=== PATIENT | male | born 1960 | race Two or more races ===

== ENCOUNTER 2017-04-10 10:10 | Inpatient (IN) | payer MEDICARE ==
--- NOTE | 2017-04-10 11:13 | ER Document Report ---
ED Medical Screen (RME) - General Chief Complaint: Abnormal Lab Results Stated Complaint: KIDNEY PROBLEMS Time Seen by Provider: 04/10/17 11:05 Mode of Arrival: Ambulatory Information source: Patient TRAVEL OUTSIDE OF THE [place] IN LAST 30 DAYS: No - HPI Patient complains to provider of: needs dialysis Notes: 04/10/17 11:10 Patient is a 57-year-old male with a history of end-stage renal disease, who presents to the emergency room requesting assistance with dialysis, states that he recently moved here from [place], thought he had outpatient dialysis arranged by the alf he was previously residing in, however Juanita told him he needed to see a digital computer systems analyst prior to being scheduled for dialysis here, his last treatment was 4 days ago he denies any symptoms at present time, he moved to the [place] area to live with his daughter 04/10/17 11:[address] Pérez, nephrology who requested patient be an observation admission to the hospitalist service, he will arrange for the dialysis nurse to perform dialysis at some point in time today, and then patient will be arranged to have outpatient dialysis in the next few days at [facility] - Related Data Allergies/Adverse Reactions: cyclosporine Allergy (Verified 04/10/17 10:13) Penicillins Allergy (Verified 04/10/17 10:13) Past Medical History Renal/ Medical History: Denies: Hx Peritoneal Dialysis - DIALYSIS Physical Exam - Vital signs Vitals: Temp Pulse Resp BP Pulse Ox 97.7 F 73 18 130/78 H 100 04/10/17 10:13 04/10/17 10:13 04/10/17 10:13 04/10/17 10:13 04/10/17 10:13 Course - Vital Signs Vital signs: Temp Pulse Resp BP Pulse Ox 97.7 F 73 18 130/78 H 100 04/10/17 10:13 04/10/17 10:13 04/10/17 10:13 04/10/17 10:13 04/10/17 10:13
[2017-04-10 11:25] LABS: ABSOLUTE EOSINOPHILS # (AUTO) 0.2 10^3/uL (0.0-0.6); ABSOLUTE LYMPHOCYTES (AUTO) 1.2 10^3/uL (0.5-4.7); ABSOLUTE MONOCYTES (AUTO) 0.6 10^3/uL (0.1-1.4); ABSOLUTE NEUT (AUTO) 2.7 10^3/uL (1.7-8.2); BASOPHILS % (AUTO) 0.9 % (0-2); EOSINOPHILS % (AUTO) 4.2 % (0-6); HEMOGLOBIN 12.9 g/dL (13.5-17.0); HGB HCT DIFFERENCE -0.3; LYMPHOCYTES % (AUTO) 24.7 % (13-45); MEAN CORPUSCULAR HEMOGLOBIN 34.5 pg (27.0-33.4); MEAN CORPUSCULAR HGB CONC 33.2 g/dL (32.0-36.0); MEAN CORPUSCULAR VOLUME 104 fl (80-97); MONOCYTES % (AUTO) 12.1 % (3-13); RED BLOOD COUNT 3.75 10^6/uL (4.35-5.55); RED CELL DISTRIBUTION WIDTH 15.4 % (11.5-14.0); SEGMENTED NEUTROPHILS % (AUTO) 58.1 % (42-78); WHITE BLOOD COUNT 4.7 10^3/uL (4.0-10.5)
[2017-04-10 11:40] LABS: ALANINE AMINOTRANSFERASE 26 U/L (21-72); ALKALINE PHOSPHATASE 45 U/L (38-126); ASPARTATE AMINO TRANSFERASE 13 U/L (17-59); BILIRUBIN,DIRECT 0.7 mg/dL (0.0-0.4); BILIRUBIN,TOTAL 0.7 mg/dL (0.2-1.3); BLOOD UREA NITROGEN 84 mg/dL (7-20); CALCIUM 7.5 mg/dL (8.4-10.2); CARBON DIOXIDE 17 mmol/L (22-30); GLUCOSE 100 mg/dL (75-110); TOTAL PROTEIN 6.7 g/dL (6.3-8.2)
[2017-04-10 11:49] LABS: CHLORIDE 99 mmol/L (98-107); SODIUM 140.4 mmol/L (137-145)
[2017-04-10 11:51] LABS: ANION GAP 24 (5-19)
[2017-04-10 11:54] LABS: POTASSIUM 6.6 mmol/L (3.6-5.0)
[2017-04-10] MEDS ORDERED: CALCIUM GLUCONATE 1000 MG/10 ML INJ IV ONE (11:57)
[2017-04-10] MEDS ORDERED: INSULIN REG, HUMAN 100 UNIT/ML 3 ML VIAL (PYX) IV ONE (11:57)
[2017-04-10] MEDS ORDERED: DEXTROSE 50%-WATER 25 GM/50 ML DISP.SYRIN IV ONE (11:57)
[2017-04-10 12:07] LABS: CREATININE RESULT 17.96 mg/dL (0.52-1.25)
--- NOTE | 2017-04-10 12:52 | ER Document Report ---
ED General - General Chief Complaint: Abnormal Lab Results Stated Complaint: KIDNEY PROBLEMS Time Seen by Provider: 04/10/17 11:05 Mode of Arrival: Ambulatory Information source: Patient Notes: 57-year-old male history of dialysis who had dialysis on but has been noted to have elevated potassium presents with concerns for needing dialysis. Pt denies any chest pain sob. Dr Pérez requests patient admitted for obs and dialysis due ot high risk of cardiac event TRAVEL OUTSIDE OF THE [place] IN LAST 30 DAYS: No - HPI Onset: Just prior to arrival Onset/Duration: Sudden Quality of pain: No pain Severity: Moderate Pain Level: Denies Associated symptoms: Other Exacerbated by: Denies Relieved by: Denies Similar symptoms previously: Yes Recently seen / treated by doctor: Yes - Related Data Allergies/Adverse Reactions: cyclosporine Allergy (Verified 04/10/17 10:13) Penicillins Allergy (Verified 04/10/17 10:13) Past Medical History - General Information source: Patient - Social History Smoking Status: Never Smoker Cigarette use (# per day): No Chew tobacco use (# tins/day): No Smoking Education Provided: No Family History: Reviewed & Not Pertinent Patient has suicidal ideation: No Patient has homicidal ideation: No Renal/ Medical History: Denies: Hx Peritoneal Dialysis - DIALYSIS Review of Systems - Review of Systems Notes: REVIEW OF SYSTEMS: CONSTITUTIONAL : Denies fever, chills, or sweats. Denies recent illness. EENT: Denies eye, ear, throat, or mouth pain or symptoms. Denies nasal or sinus congestion or discharge. Denies throat, tongue, or mouth swelling or difficulty swallowing. CARDIOVASCULAR: Denies chest pain. Denies palpitations or racing or irregular heart beat. Denies ankle edema. RESPIRATORY: Denies cough, cold, or chest congestion. Denies shortness of breath, difficulty breathing, or wheezing. GASTROINTESTINAL: Denies abdominal pain or distention. Denies nausea, vomiting , or diarrhea. Denies blood in vomitus, stools, or per rectum. Denies black, tarry stools. Denies constipation. GENITOURINARY: Denies difficulty urinating, painful urination, burning, frequency, blood in urine, or discharge. MUSCULOSKELETAL: Denies back or neck pain or stiffness. Denies joint pain or swelling. SKIN: Denies rash, lesions or sores. HEMATOLOGIC : Denies easy bruising or bleeding. LYMPHATIC: Denies swollen, enlarged glands. NEUROLOGICAL: Denies confusion or altered mental status. Denies passing out or loss of consciousness. Denies dizziness or lightheadedness. Denies headache. Denies weakness or paralysis or loss of use of either side. Denies problems with gait or speech. Denies sensory loss, numbness, or tingling. Denies seizures. PSYCHIATRIC: Denies anxiety or stress. Denies depression, suicidal ideation, or homicidal ideation. ALL OTHER SYSTEMS REVIEWED AND NEGATIVE. Dictation was performed using [employer] voice recognition software PHYSICAL EXAMINATION: GENERAL: Well-appearing, well-nourished and in no acute distress. HEAD: Atraumatic, normocephalic. EYES: Pupils equal round and reactive to light, extraocular movements intact, sclera anicteric, conjunctiva are normal. ENT: Nares patent, oropharynx clear without exudates. Moist mucous membranes. NECK: Normal range of motion, supple without lymphadenopathy LUNGS: Breath sounds clear to auscultation bilaterally and equal. No wheezes rales or rhonchi. HEART: Regular rate and rhythm without murmurs ABDOMEN: Soft, nontender, nondistended abdomen. No guarding, no rebound. No masses appreciated. Musculoskeletal: Normal range of motion, no pitting or edema. No cyanosis. NEUROLOGICAL: Cranial nerves grossly intact. Normal speech, normal gait. Normal sensory, motor exams PSYCH: Normal mood, normal affect. SKIN: Warm, Dry, normal turgor, no rashes or lesions noted. dialysis access upper extremity Physical Exam - Vital signs Vitals: Temp Pulse Resp BP Pulse Ox 97.7 F 73 18 130/78 H 100 04/10/17 10:13 04/10/17 10:13 04/10/17 10:13 04/10/17 10:13 04/10/17 10:13 Course - Re-evaluation Re-evalutation: 04/10/17 16:28 Patient will be admitted to observation for his hyperkalemia, EKG did not note hyperacute T waves therefore I do not believe patient requires any calcium at this time. He will require dialysis, otherwise he appears to be in no distress - Vital Signs Vital signs: Temp Pulse Resp BP Pulse Ox 97.7 F 73 18 130/78 H 100 04/10/17 10:13 04/10/17 10:13 04/10/17 10:13 04/10/17 10:13 04/10/17 10:13 - Laboratory Result Diagrams: 04/10/17 11:10 04/10/17 11:10 Laboratory results interpreted by me: 04/10/17 04/10/17 11:10 11:10 RBC 3.75 L Hgb 12.9 L MCV 104 H MCH 34.5 H RDW 15.4 H Potassium 6.6 H* Carbon Dioxide 17 L Anion Gap 24 H BUN 84 H Creatinine 17.96 H Est GFR ( Amer) 3 L Est GFR (Non-Af Amer) 3 L Calcium 7.5 L Direct Bilirubin 0.7 H AST 13 L - Diagnostic Test Radiology reviewed: Image reviewed, Reports reviewed - EKG Interpretation by Me EKG shows normal: Sinus rhythm, Rinard, Intervals, QRS Complexes Critical Care Note - Critical Care Note Total time excluding time spent on procedures (mins): 31 Comments: 31 minutes of critical care time spent in direct contact evaluating and reevaluating the patient, treating symptoms, reviewing labs and studies and speaking with family and consultants excluding any procedures Discharge - Discharge Clinical Impression: Hyperkalemia, ESRD (end stage renal disease) HTN (hypertension) Qualifiers: Hypertension type: renovascular hypertension Qualified Code(s): I15.0 - Renovascular hypertension Admitting Provider: Hospitalist Unit Admitted: Telemetry
[2017-04-10] MEDS ORDERED: ONDANSETRON HCL INJ/PF 4 MG/2 ML SDV IV PRN (13:42)
[2017-04-10] MEDS ORDERED: ACETAMINOPHEN 325 MG TABLET PO PRN (13:42)
[2017-04-10] MEDS ORDERED: IPRATROPIUM/ALBUTEROL 0.5-2.5 MG/3 ML AMPUL NEB PRN (13:42)
--- NOTE | 2017-04-10 14:10 | PDOC H&P ---
History of Present Illness Admission Date/PCP: 04/10/2017 Patient complains of: I was told to come in History of Present Illness: TOLU CAMACHO is a 57 year old male presents to the ED from [facility] due to abnl labs and no outpt arrangements for dialysis. He has hypertensive induced ESRD and previously receiving HD in [place] as recently as this past but has since moved to [place] and unable to establish with local dialysis center without prior chalk cutter evaluation. He was told to present to the ED where "they would set it all up". He denies chest pain, palpitations, swelling of legs, dyspnea, VIVAS, dizziness, N/T, abdominal pain, N/V/D, rash or fatigue. He no longer makes any urine. He claims to have at least one month supply of all his BP meds and still taking them as directed. eval in ED shows mild macrocytic anemia, K 6.6, AG met acidosis and Scr 18. we were asked to admit for observation so arrangements could be made for urgent dialysis this afternoon. Past Medical History Cardiac Medical History: Reports: Hypertension, Peripheral Vascular Disease, Other - intracranial aneurysm with hemorrhage requiring drainage and surgical repair. Denies: Coronary Artery Disease Pulmonary Medical History: Reports: None Endocrine Medical History: Denies: Diabetes Mellitus Type 1 Renal/ Medical History: Reports: End Stage Renal Disease GI Medical History: Reports: None Past Surgical History Past Surgical History: Reports: Vascular Surgery - AV fistula left forearm, Other - carotid artery stents bilat Denies: Renal Transplant Social History Information Source: Patient Lives with: Family - daughter Smoking Status: Current Every Day Smoker Cigarettes Packs Per Day: 0.5 Frequency of Alcohol Use: None Hx Recreational Drug Use: No Hx Prescription Drug Abuse: No - Advance Directive Resuscitation Status: Full Code Family History Family History: Reviewed & Not Pertinent, Thyroid Disfunction, Other - CKD Parental Family History Reviewed: Yes Children Family History Reviewed: Yes Sibling(s) Family History Reviewed.: Yes Medication/Allergy Allergies/Adverse Reactions: cyclosporine Allergy (Verified 04/10/17 10:13) Penicillins Allergy (Verified 04/10/17 10:13) Review of Systems All systems: reviewed and no additional remarkable complaints except as stated - all systems reviewed, see HPI, remaining systems negative Physical Exam Vital Signs: Temp Pulse Resp BP Pulse Ox 97.7 F 73 18 130/78 H 100 04/10/17 10:13 04/10/17 10:13 04/10/17 10:13 04/10/17 10:13 04/10/17 10:13 Intake & Output 04/09/17 04/10/17 04/11/17 06:59 06:59 06:59 Weight 109 kg General appearance: PRESENT: no acute distress, obese, well-developed, well- nourished Head exam: PRESENT: atraumatic, normocephalic Eye exam: PRESENT: conjunctival injection - left eye. ABSENT: scleral icterus Mouth exam: PRESENT: moist, neck supple Teeth exam: PRESENT: poor dentation Neck exam: PRESENT: full ROM. ABSENT: JVD Respiratory exam: PRESENT: clear to auscultation gage. ABSENT: accessory muscle use Cardiovascular exam: PRESENT: RRR, other - AF fistula in left forarm with palpable thrill and audible bruit. ABSENT: systolic murmur Pulses: PRESENT: normal radial pulses, +1 pedal pulses bilateral Vascular exam: ABSENT: normal capillary refill - diminished at toes, pallor GI/Abdominal exam: PRESENT: normal bowel sounds, soft. ABSENT: tenderness Extremities exam: PRESENT: pedal edema - trace at the ankles. ABSENT: calf tenderness Musculoskeletal exam: PRESENT: ambulatory, full ROM Neurological exam: PRESENT: alert, awake, oriented to person, oriented to place , oriented to time, oriented to situation Psychiatric exam: PRESENT: appropriate affect, normal mood Skin exam: PRESENT: warm. ABSENT: rash Results Laboratory Results: 04/10/17 11:10 04/10/17 11:10 04/10/17 04/10/17 11:10 11:10 WBC 4.7 RBC 3.75 L Hgb 12.9 L Hct 39.0 MCV 104 H MCH 34.5 H MCHC 33.2 RDW 15.4 H Plt Count 164 Seg Neutrophils % 58.1 Lymphocytes % 24.7 Monocytes % 12.1 Eosinophils % 4.2 Basophils % 0.9 Absolute Neutrophils 2.7 Absolute Lymphocytes 1.2 Absolute Monocytes 0.6 Absolute Eosinophils 0.2 Absolute Basophils 0.0 Sodium 140.4 Potassium 6.6 H* Chloride 99 Carbon Dioxide 17 L Anion Gap 24 H BUN 84 H Creatinine 17.96 H Est GFR ( Amer) 3 L Est GFR (Non-Af Amer) 3 L Glucose 100 Calcium 7.5 L Total Bilirubin 0.7 AST 13 L ALT 26 Alkaline Phosphatase 45 Total Protein 6.7 Albumin 4.0 Assessment & Plan - Diagnosis (1) Hyperkalemia Is this a current diagnosis for this admission?: YesPlan: new, 2/2 ESRD in need of dialysis; already received pharmacologic treatment in ED, admit for nephrology consult and urgent dialysis this afternoon. dr ayers already aware (2) Metabolic acidosis Is this a current diagnosis for this admission?: YesPlan: new. as above (3) ESRD (end stage renal disease) Is this a current diagnosis for this admission?: YesPlan: acute on chronic; treat as above (4) HTN (hypertension) Qualifiers: Hypertension type: renovascular hypertension Qualified Code(s): I15.0 - Renovascular hypertension Is this a current diagnosis for this admission?: YesPlan: chronic; resume home regimen once confirmed (5) Macrocytic anemia Is this a current diagnosis for this admission?: YesPlan: new; ck B12 and folate levels - Time Time Spent: 50 to 70 Minutes Medications reviewed and adjusted accordingly: Yes Anticipated discharge: Home Within: within 24 hours
[2017-04-10 15:36] LABS: FOLATE 10.1 ng/mL (>2.76)
--- NOTE | 2017-04-10 17:57 | EKG REPORT ---
SEVERITY:- BORDERLINE ECG - SINUS RHYTHM BORDERLINE R WAVE PROGRESSION, ANTERIOR LEADS : Confirmed by: Kathy Mccray MD 10-Apr-2017 17:56:58
[2017-04-11 06:38] LABS: CALCIUM 7.8 mg/dL (8.4-10.2); CARBON DIOXIDE 25 mmol/L (22-30); CREATININE RESULT 11.76 mg/dL (0.52-1.25); GLUCOSE 78 mg/dL (75-110); MAGNESIUM 2.1 mg/dL (1.6-2.3); PHOSPHORUS 8.1 mg/dL (2.5-4.5)
[2017-04-11 06:46] LABS: ANION GAP 19 (5-19); CHLORIDE 98 mmol/L (98-107); SODIUM 141.6 mmol/L (137-145)
[2017-04-11 06:47] LABS: BLOOD UREA NITROGEN 53 mg/dL (7-20)
[2017-04-11 07:02] LABS: HEMATOCRIT 38.8 % (37.9-51.0); HEMOGLOBIN 12.8 g/dL (13.5-17.0); HGB HCT DIFFERENCE -0.4; MEAN CORPUSCULAR HEMOGLOBIN 34.1 pg (27.0-33.4); MEAN CORPUSCULAR VOLUME 103 fl (80-97); RED BLOOD COUNT 3.76 10^6/uL (4.35-5.55); RED CELL DISTRIBUTION WIDTH 15.1 % (11.5-14.0); WHITE BLOOD COUNT 4.6 10^3/uL (4.0-10.5)
--- NOTE | 2017-04-11 09:17 | PDOC CONSULTATION ---
Consultation Consult Date: 04/10/17 Consult reason:: hyperkalemia in ESRD for acute dialysis History of Present Illness Admission Date/PCP: 04/10/17 13:42 History of Present Illness: TOLU CAMACHO is a 57 year old male is coming from [place] presents to the ED from [facility] due to abnormal labs and no outpt arrangements for dialysis. He has hypertensive induced ESRD and previously receiving HD in [place] as recently as this past but has since moved to [place] and unable to establish with local dialysis center without prior chef teacher evaluation. He was told to present to the ED where "they would set it all up". He denies chest pain, palpitations, swelling of legs, dyspnea, VIVAS, dizziness, N/T, abdominal pain. Is feeling weak and has been losing appetite. He no longer makes any urine. He claims to have at least one month supply of all his BP meds and still taking them as directed. Eval in ED shows mild macrocytic anemia, K 6.6, AG met acidosis and Scr 18. Patient is developing early uremia with and has a potassium of 6.6 indicating emergent dialysis.Patient was seen on dialysis and is undergoing dialysis without any issues. Is being supervised to ensure a safe and smooth procedure. Vital signs are stable. Orders were discussed with the treating nurse. Past Medical History Cardiac Medical History: Reports: Hypertension-primary, Peripheral Vascular Disease, Other - intracranial aneurysm with hemorrhage requiring drainage and surgical repair. Denies: Coronary Artery Disease Pulmonary Medical History: Reports: None Neurological History Note: History of ruptured aneurysm and CVA Endocrine Medical History: Denies: Diabetes Mellitus Type 1 Renal/ Medical History: Reports: End Stage Renal Disease Denies: Renal Transplant GI Medical History: Reports: None Psychiatric Medical History: Reports: Tobacco Dependency Hematology Medical History: Reports Anemia of Chronic Kidney Disease Past Surgical History Past Surgical History: Reports: Vascular Surgery - AV fistula left forearm, Other - carotid artery stents bilat Denies: Renal Transplant Social History Lives with: Family - daughter Smoking Status: Current Every Day Smoker Cigarettes Packs Per Day: 0.5 Frequency of Alcohol Use: None Hx Recreational Drug Use: No Hx Prescription Drug Abuse: No - Advance Directive Resuscitation Status: Full Code Family History Parental Family History Reviewed: Yes - father with hypertension and ESRD but refused to go on HD Children Family History Reviewed: Yes - negative for CKD Sibling(s) Family History Reviewed.: Yes - negative for CKD Medication/Allergy Home Medications: Acetaminophen [Tylenol 325 mg Tablet] 650 mg PO Q6HP PRN 04/10/17 Aspirin [Aspirin 81 mg Chewable Tablet] 81 mg PO DAILY 04/10/17 Atorvastatin Calcium [Lipitor 80 mg Tablet] 80 mg PO QHS 04/10/17 Calcium Carbonate 750 Mg [Tums E-X 750 Mg] 3,000 mg PO MEALS PRN 04/10/17 Calcium Carbonate 750 Mg [Tums E-X 750mg] 1,500 mg PO BID 04/10/17 Cinacalcet HCl [Sensipar 60 mg Tablet] 60 mg PO QHS 04/10/17 Cyclobenzaprine HCl [Flexeril 5 mg Tablet] 5 mg PO Q12 04/10/17 Duloxetine HCl 90 mg PO DAILY 04/10/17 Magnesium Hydroxide [Milk of Magnesia] 400 mg PO DAILYP PRN 04/10/17 Midodrine HCl [Proamatine 5 mg Tablet] 5 mg PO ASDIR PRN 04/10/17 Nitroglycerin [Nitrostat 0.4 mg (1/150 Gr) Tabs 25/Bottle] 1 tab SL Q5MP PRN Sumatriptan Succinate [Imitrex 50 mg Tablet] 50 mg PO DAILYP PRN 04/10/17 Trazodone HCl [Desyrel] 100 mg PO QHS 04/10/17 Allergies/Adverse Reactions: cyclosporine Allergy (Verified 04/10/17 10:13) Penicillins Allergy (Verified 04/10/17 10:13) Review of Systems Constitutional: PRESENT: weakness. ABSENT: fever(s), headache(s), night sweats Nose, Mouth, and Throat: ABSENT: mouth pain, sore throat Cardiovascular: ABSENT: dyspnea on exertion, edema, orthropnea Respiratory: ABSENT: dyspnea, hemoptysis Gastrointestinal: PRESENT: abdominal pain. ABSENT: diarrhea, dysphagia, heartburn, hematemesis, hematochezia, melena, nausea Neurological: PRESENT: confusion, memory loss. ABSENT: focal weakness Hematologic/Lymphatic: ABSENT: easy bruising, lymphadenopathy Physical Exam Vital Signs: Temp Pulse Resp BP Pulse Ox 97.7 F 68 20 130/78 H 100 04/10/17 10:13 04/10/17 16:40 04/10/17 16:40 04/10/17 10:13 04/10/17 16:40 General appearance: PRESENT: no acute distress Eye exam: PRESENT: conjunctiva pink, EOMI, nystagmus, PERRLA Ear exam: PRESENT: normal external ear exam Mouth exam: PRESENT: moist. ABSENT: neck supple Teeth exam: PRESENT: poor dentation Throat exam: PRESENT: post pharyngeal erythema Neck exam: ABSENT: lymphadenopathy, meningismus, tenderness, thyromegaly, tracheal deviation Respiratory exam: PRESENT: clear to auscultation gage, rhonchi. ABSENT: crackles Cardiovascular exam: PRESENT: +S1, +S2 GI/Abdominal exam: PRESENT: normal bowel sounds, soft. ABSENT: diminished bowel sounds, distended, organomegaly, tenderness Extremities exam: ABSENT: joint swelling, pedal edema Neurological exam: PRESENT: alert, oriented to person, oriented to place, oriented to time Focused psych exam: ABSENT: psychomotor agitation Skin exam: PRESENT: rash. ABSENT: cyanosis, dry, mottled Assessment & Plan - Diagnosis (1) ESRD (end stage renal disease) Is this a current diagnosis for this admission?: YesPlan: Patient has apparent hypertensive ESRD and has been on dialysis for the last 4 years. He just left [place] without arranging for continuation of outpatient dialysis. He is moving in with his daughter here. Patient has got early developing uremia and is a potassium 6.6 necessitating emergent dialysis. He is undergoing dialysis without any issues.Is being supervised to ensure a safe and smooth procedure. Vital signs are stable. Orders were discussed and reviewed with the treating nurse. (2) HTN (hypertension) Qualifiers: Hypertension type: renovascular hypertension Qualified Code(s): I15.0 - Renovascular hypertension Is this a current diagnosis for this admission?: YesPlan: Stable. Monitor. (3) Hyperkalemia Is this a current diagnosis for this admission?: YesPlan: Should respond to hemodialysis. Advised appropriate diet. (4) Macrocytic anemia Is this a current diagnosis for this admission?: YesPlan: Stable from an erythropoietin point of view. (5) Metabolic acidosis Is this a current diagnosis for this admission?: YesPlan: Should respond to hemodialysis.
--- NOTE | 2017-04-11 09:51 | PDOC DISCHARGE SUMMARY ---
<MARTINEZ AMADO - Last Filed: 04/11/17 09:50> General - Admit/Disc Date/PCP Admission Date/Primary Care Provider: 04/10/17 13:42 Discharge Date: 04/11/17 - Discharge Diagnosis (1) ESRD (end stage renal disease) Is this a current diagnosis for this admission?: YesSummary: The patient was seen by Dr. Pérez who has set up a new dialysis schedule for the patient with Dr. Up. I have placed a consult to the discharge planners on the day of discharge to confirm his schedule is set up. I did speak personally to Dr. Pérez to believe he is stable for discharge. (2) Hyperkalemia Is this a current diagnosis for this admission?: YesSummary: Resolved after dialysis. (3) Metabolic acidosis Is this a current diagnosis for this admission?: YesSummary: Resolved after dialysis (4) Macrocytic anemia Is this a current diagnosis for this admission?: YesSummary: Stable. Vitamin B12 and folate levels were normal. (5) HTN (hypertension) Is this a current diagnosis for this admission?: YesSummary: Stable - Additional Information Resuscitation Status: Full Code Discharge Diet: Other (Comments) - renal Discharge Activity: Activity As Tolerated, Balance Activity w/Rest Home Medications: Acetaminophen [Tylenol 325 mg Tablet] 650 mg PO Q6HP PRN 04/10/17 Aspirin [Aspirin 81 mg Chewable Tablet] 81 mg PO DAILY 04/10/17 Atorvastatin Calcium [Lipitor 80 mg Tablet] 80 mg PO QHS 04/10/17 Calcium Carbonate 750 Mg [Tums E-X 750 Mg] 3,000 mg PO MEALS PRN 04/10/17 Calcium Carbonate 750 Mg [Tums E-X 750mg] 1,500 mg PO BID 04/10/17 Cinacalcet HCl [Sensipar 60 mg Tablet] 60 mg PO QHS 04/10/17 Cyclobenzaprine HCl [Flexeril 5 mg Tablet] 5 mg PO Q12 04/10/17 Duloxetine HCl 90 mg PO DAILY 04/10/17 Magnesium Hydroxide [Milk of Magnesia] 400 mg PO DAILYP PRN 04/10/17 Midodrine HCl [Proamatine 5 mg Tablet] 5 mg PO ASDIR PRN 04/10/17 Nitroglycerin [Nitrostat 0.4 mg (1/150 Gr) Tabs 25/Bottle] 1 tab SL Q5MP PRN Sumatriptan Succinate [Imitrex 50 mg Tablet] 50 mg PO DAILYP PRN 04/10/17 Trazodone HCl [Desyrel] 100 mg PO QHS 04/10/17 Azithromycin [Zithromax 250 mg Tablet] 250 mg PO ASDIR PRN #6 tablet 04/13/17 Prednisone [Deltasone 20 mg Tablet] 3 tab PO DAILY 5 Days 04/13/17 History of Present Illness History of Present Illness: TOLU CAMACHO is a 57 year old male who presented to the emergency room with hyperkalemia Hospital Course Hospital Course: Patient is an extremely pleasant 57-year-old male who presented to the emergency room from [facility] due to abnormal labs and no urine output. His past medical history is significant for end-stage renal disease, peripheral vascular disease and type 1 diabetes mellitus. He just moved to this area from [place] this past but had been unable to establish with a local dialysis center without prior lead military analyst evaluation. He was told to present to the emergency room where they would "set it all up". He was admitted to the hospital and a consult was placed to Dr. Pérez. At the time of admission he was found to have a mild macrocytic anemia, potassium of 6.6, anion gap metabolic acidosis with a creatinine of 18. He was placed in observation in the hospital and he underwent dialysis yesterday. The patient is stable today and he will be discharged to home. I have asked the discharge planners to confirm that he is now set up with [facility] prior to discharge. At this point maximum hospital benefit has been reached. The patient will be discharged home today in stable condition. Physical Exam Vital Signs: Temp Pulse Resp BP Pulse Ox 98.6 F 76 16 105/68 96 04/11/17 03:47 04/11/17 07:00 04/11/17 03:47 04/11/17 03:47 04/11/17 03:47 Intake & Output 04/10/17 04/11/17 04/12/17 06:59 06:59 06:59 Intake Total 672 Output Total 3800 Balance -3128 Weight 108 kg General appearance: PRESENT: no acute distress, well-developed, well-nourished Head exam: PRESENT: atraumatic, normocephalic Respiratory exam: PRESENT: clear to auscultation gage. ABSENT: accessory muscle use, chest wall tenderness, crackles, rhonchi, wheezes Cardiovascular exam: PRESENT: +S1, +S2. ABSENT: diastolic murmur, gallop, rubs GI/Abdominal exam: PRESENT: normal bowel sounds, soft. ABSENT: tenderness Extremities exam: ABSENT: clubbing, pedal edema, tenderness Musculoskeletal exam: PRESENT: ambulatory Neurological exam: PRESENT: alert, awake, oriented to person, oriented to time, oriented to situation, CN II-XII grossly intact Skin exam: PRESENT: dry, warm Results Laboratory Results: 04/11/17 05:46 04/11/17 05:46 04/11/17 04/11/17 05:46 05:46 WBC 4.6 RBC 3.76 L Hgb 12.8 L Hct 38.8 MCV 103 H MCH 34.1 H MCHC 33.0 RDW 15.1 H Plt Count 166 Sodium 141.6 Potassium 5.0 D Chloride 98 Carbon Dioxide 25 Anion Gap 19 BUN 53 H D Creatinine 11.76 H Est GFR ( Amer) 5 L Est GFR (Non-Af Amer) 4 L Glucose 78 Calcium 7.8 L Phosphorus 8.1 H Magnesium 2.1 Plan Discharge Plan: The patient has now been dialyzed and he will be discharged home today and start a new dialysis schedule at [facility]. Time Spent: Greater than 30 Minutes <Amber PÉREZ - Last Filed: 04/23/17 17:51> General - Admit/Disc Date/PCP Admission Date/Primary Care Provider: 04/10/17 13:42 - Discharge Diagnosis (1) ESRD (end stage renal disease) Is this a current diagnosis for this admission?: Yes (2) HTN (hypertension) Is this a current diagnosis for this admission?: Yes (3) Hyperkalemia Is this a current diagnosis for this admission?: Yes (4) Macrocytic anemia Is this a current diagnosis for this admission?: Yes (5) Metabolic acidosis Is this a current diagnosis for this admission?: Yes History of Present Illness History of Present Illness: TOLU CAMACHO is a 57 year old male Physical Exam Vital Signs: Temp Pulse Resp BP Pulse Ox 98.1 F 80 16 108/68 94 04/11/17 11:48 04/11/17 11:48 04/11/17 11:48 04/11/17 11:48 04/11/17 11:48 Results Laboratory Results: 04/11/17 05:46 04/11/17 05:46
[2017-04-11 12:17] VITALS: BP 108/68
== END 2017-04-11 12:00 | disposition home or self-care (01) | DRG 640 ==
LOC: ER 10:10 → EH 13:42 → UNDOADMIN 14:32 → EH 14:32 → 4N 18:50
PROC: 5A1D00Z (ICD-10-PCS; principal; 2017-04-10)
DX: E87.5 Hyperkalemia (principal); N18.6 End stage renal disease; I12.0 Hypertensive chronic kidney disease with stage 5 chronic kidney disease or end stage renal disease; I73.9 Peripheral vascular disease, unspecified; F17.200 Nicotine dependence, unspecified, uncomplicated; E87.2 Acidosis; D53.9 Nutritional anemia, unspecified; Z99.2 Dependence on renal dialysis; Z88.0 Allergy status to penicillin; Z88.8 Allergy status to other drugs, medicaments and biological substances; Z84.1 Family history of disorders of kidney and ureter
CPT/HCPCS: 36415; 80048; 80053; 82607; 82746; 83735; 84100; 85025; 85027; 93005; 93010; 96374; 96375; 99291; J0610; J1815; J3490

== ENCOUNTER 2017-04-13 12:20 | Emergency (ER) | payer MEDICARE ==
--- NOTE | 2017-04-13 12:50 | ER Document Report ---
ED Medical Screen (RME) - General Chief Complaint: Headache Stated Complaint: DIFFICULTY BREATHING Time Seen by Provider: 04/13/17 12:47 Notes: Patient says he has felt short of breath since he awakened this morning. Has not had this previously, although he is a dialysis patient on Monday, Monday , and Monday dialysis. He felt fine after his dialysis yesterday and felt well when he went to bed last night. This morning, he has felt warm, but has not taken his temperature. No vomiting and no diarrhea. No history of asthma or COPD. Patient does smoke 4 or 5 cigarettes a day. History of hypertension. No history of heart disease. TRAVEL OUTSIDE OF THE [place] IN LAST 30 DAYS: No - Related Data Allergies/Adverse Reactions: cyclosporine Allergy (Verified 04/13/17 12:30) Penicillins Allergy (Verified 04/13/17 12:30) Past Medical History - Past Medical History Cardiac Medical History: Reports: Hx Hypertension, Hx Peripheral Vascular Disease Denies: Hx Coronary Artery Disease Endocrine Medical History: Denies: Hx Diabetes Mellitus Type 1 Renal/ Medical History: Reports: Hx End Stage Renal Disease. Denies: Hx Peritoneal Dialysis Psychiatric Medical History: Reports: Hx Depression Past Surgical History: Reports: Hx Vascular Surgery - AV fistula left forearm, Other - carotid artery stents bilat Physical Exam - Vital signs Vitals: Temp Pulse Resp BP Pulse Ox 98.6 F 102 H 16 118/76 92 04/13/17 12:30 04/13/17 12:30 04/13/17 12:30 04/13/17 12:30 04/13/17 12:30 Course - Vital Signs Vital signs: Temp Pulse Resp BP Pulse Ox 98.6 F 102 H 16 118/76 92 04/13/17 12:30 04/13/17 12:30 04/13/17 12:30 04/13/17 12:30 04/13/17 12:30
[2017-04-13 13:12] LABS: ABSOLUTE BASOPHILS # (AUTO) 0.1 10^3/uL (0.0-0.2); ABSOLUTE EOSINOPHILS # (AUTO) 0.1 10^3/uL (0.0-0.6); ABSOLUTE LYMPHOCYTES (AUTO) 1.3 10^3/uL (0.5-4.7); ABSOLUTE MONOCYTES (AUTO) 0.5 10^3/uL (0.1-1.4); ABSOLUTE NEUT (AUTO) 4.8 10^3/uL (1.7-8.2); BASOPHILS % (AUTO) 1.4 % (0-2); EOSINOPHILS % (AUTO) 1.5 % (0-6); HEMATOCRIT 45.4 % (37.9-51.0); HEMOGLOBIN 14.8 g/dL (13.5-17.0); LYMPHOCYTES % (AUTO) 18.6 % (13-45); MEAN CORPUSCULAR HEMOGLOBIN 33.5 pg (27.0-33.4); MEAN CORPUSCULAR HGB CONC 32.6 g/dL (32.0-36.0); MEAN CORPUSCULAR VOLUME 103 fl (80-97); RED BLOOD COUNT 4.42 10^6/uL (4.35-5.55); RED CELL DISTRIBUTION WIDTH 15.2 % (11.5-14.0); SEGMENTED NEUTROPHILS % (AUTO) 71.5 % (42-78); WHITE BLOOD COUNT 6.8 10^3/uL (4.0-10.5)
--- NOTE | 2017-04-13 13:23 | RADIOLOGY REPORT (SQ) ---
EXAM DESCRIPTION: CHEST PA/LAT COMPLETED DATE/TIME: 04/13/2017 1:15 pm REASON FOR STUDY: Short of breath, dialysis patient COMPARISON: None. EXAM PARAMETERS: NUMBER OF VIEWS: two views TECHNIQUE: Digital Frontal and Lateral radiographic views of the chest acquired. RADIATION DOSE: NA LIMITATIONS: none FINDINGS: LUNGS AND PLEURA: No opacities, masses or pneumothorax. No pleural effusion. MEDIASTINUM AND HILAR STRUCTURES: No masses or contour abnormalities. HEART AND VASCULAR STRUCTURES: Heart normal size. No evidence for failure. BONES: Degenerative changes noted throughout the spine. No acute abnormality. HARDWARE: None in the chest. OTHER: No other significant finding. IMPRESSION: NO SIGNIFICANT RADIOGRAPHIC FINDING IN THE CHEST. TECHNICAL DOCUMENTATION: JOB ID: [id number] [employer]- All Rights Reserved
[2017-04-13 13:31] LABS: ALANINE AMINOTRANSFERASE 23 U/L (21-72); ALBUMIN 4.8 g/dL (3.5-5.0); ALKALINE PHOSPHATASE 53 U/L (38-126); ANION GAP 19 (5-19); ASPARTATE AMINO TRANSFERASE 21 U/L (17-59); BILIRUBIN,DIRECT 0.7 mg/dL (0.0-0.4); BILIRUBIN,TOTAL 0.8 mg/dL (0.2-1.3); BLOOD UREA NITROGEN 39 mg/dL (7-20); CARBON DIOXIDE 28 mmol/L (22-30); CHLORIDE 95 mmol/L (98-107); CREATININE RESULT 10.57 mg/dL (0.52-1.25); GLUCOSE 105 mg/dL (75-110); POTASSIUM 4.6 mmol/L (3.6-5.0); TOTAL PROTEIN 8.4 g/dL (6.3-8.2)
[2017-04-13 13:43] LABS: CREATINE KINASE MB 0.99 ng/mL (<4.55)
[2017-04-13 13:49] LABS: TROPONIN I < 0.012 ng/mL
[2017-04-13] MEDS ORDERED: AZITHROMYCIN 250 MG TABLET PO ONE (14:27)
[2017-04-13] MEDS ORDERED: IPRATROPIUM/ALBUTEROL 0.5-2.5 MG/3 ML AMPUL NEB ONE (14:27)
[2017-04-13] MEDS ORDERED: PREDNISONE 20 MG TABLET PO ONE (14:27)
--- NOTE | 2017-04-13 14:30 | ER Document Report ---
ED General - General Chief Complaint: Headache Stated Complaint: DIFFICULTY BREATHING Time Seen by Provider: 04/13/17 12:47 Mode of Arrival: Ambulatory Information source: Patient Notes: This is a 57-year-old man with a history of end-stage renal disease ([facility]: Monday, Monday, Monday) last dialyzed yesterday who presents to the emergency room with productive cough, shortness of breath and congestion. Patient denies fever. Patient states he has had the cough since leaving [place] several days ago. Patient is a longtime smoker but has never been told he has COPD. TRAVEL OUTSIDE OF THE [place] IN LAST 30 DAYS: No - HPI Onset: Last week Onset/Duration: Gradual Quality of pain: No pain Severity: None Pain Level: Denies Associated symptoms: Nonproductive cough, Shortness of breath. denies: Fever Exacerbated by: Denies Relieved by: Denies Similar symptoms previously: Yes Recently seen / treated by doctor: Yes - Related Data Allergies/Adverse Reactions: cyclosporine Allergy (Verified 04/13/17 12:30) Penicillins Allergy (Verified 04/13/17 12:30) Past Medical History - General Information source: Patient - Social History Smoking Status: Current Every Day Smoker Cigarette use (# per day): Yes Chew tobacco use (# tins/day): No - minutes Smoking Education Provided: Yes - Pack a day Frequency of alcohol use: None Drug Abuse: None Lives with: Family Family History: Reviewed & Not Pertinent Patient has suicidal ideation: No Patient has homicidal ideation: No - Past Medical History Cardiac Medical History: Reports: Hx Hypertension, Hx Peripheral Vascular Disease Denies: Hx Coronary Artery Disease Endocrine Medical History: Denies: Hx Diabetes Mellitus Type 1 Renal/ Medical History: Reports: Hx End Stage Renal Disease. Denies: Hx Peritoneal Dialysis Psychiatric Medical History: Reports: Hx Depression Past Surgical History: Reports: Hx Orthopedic Surgery - orthoscopic surg lt knee x2, Hx Vascular Surgery - AV fistula left forearm, Other - carotid artery stents bilat - Immunizations Hx Pneumococcal Vaccination: 07/23/16 Review of Systems - Review of Systems Constitutional: denies: Chills, Fever EENT: No symptoms reported Cardiovascular: No symptoms reported Respiratory: See HPI Gastrointestinal: No symptoms reported Genitourinary: No symptoms reported Male Genitourinary: No symptoms reported Musculoskeletal: No symptoms reported Skin: No symptoms reported Hematologic/Lymphatic: No symptoms reported Neurological/Psychological: No symptoms reported Physical Exam - Vital signs Vitals: Temp Pulse Resp BP Pulse Ox 98.6 F 102 H 16 118/76 92 04/13/17 12:30 04/13/17 12:30 04/13/17 12:30 04/13/17 12:30 04/13/17 12:30 Notes: Physical exam: GENERAL: 57-year-old man, alert and oriented 3, no acute distress HEAD: Atraumatic, normocephalic. EYES: Pupils equal round and reactive to light, extraocular movements intact, sclera anicteric, conjunctiva are normal. ENT: TMs normal, nares patent, oropharynx clear without exudates. Moist mucous membranes. NECK: Normal range of motion, supple without lymphadenopathy or JVD. LUNGS: Bilateral wheezes HEART: Regular rate and rhythm without murmurs, rubs or gallops. ABDOMEN: Soft, normoactive bowel sounds. No tenderness to palpation. No guarding, no rebound. No masses appreciated. EXTREMITIES: Normal range of motion, no pitting or edema. No clubbing or cyanosis. NEUROLOGICAL: Cranial nerves II through XII grossly intact. Normal speech, normal gait. PSYCH: Normal mood, normal affect. SKIN: Warm, Dry, normal turgor, no rashes or lesions noted. Course - Re-evaluation Re-evalutation: 04/13/17 15:32 The patient states he feels significantly better after nebulizer treatment. He was started on prednisone and azithromycin. His chest x-ray is currently clear and does not show any fluid overload. I do not see any JVD or evidence of fluid overload on exam and his potassium is normal. So I think today's symptoms are more from a bronchitis/COPD picture to his long history of smoking. He will go back to [facility] tomorrow for dialysis and I have referred him to primary care physician. 04/13/17 22:50 04/13/17 22:50 - Vital Signs Vital signs: Temp Pulse Resp BP Pulse Ox 97.8 F 94 20 112/74 94 04/13/17 15:46 04/13/17 15:46 04/13/17 15:46 04/13/17 15:46 04/13/17 15:46 - Laboratory Result Diagrams: 04/13/17 13:05 04/13/17 13:05 Laboratory results interpreted by me: 04/13/17 04/13/17 13:05 13:05 MCV 103 H MCH 33.5 H RDW 15.2 H Chloride 95 L BUN 39 H Creatinine 10.57 H Est GFR ( Amer) 6 L Est GFR (Non-Af Amer) 5 L Calcium 8.0 L Direct Bilirubin 0.7 H Total Protein 8.4 H - Diagnostic Test Radiology reviewed: Image reviewed, Reports reviewed - X-ray shows no infiltrates - EKG Interpretation by Me Rate: Normal Rhythm: NSR - EKG shows normal sinus rhythm with a ventricular rate of 93, no acute ST-T wave changes Discharge - Discharge Clinical Impression: Acute bronchitis Condition: Stable Disposition: HOME, SELF-CARE Additional Instructions: Results of the chest x-ray: Show no fluid overload. Your potassium and blood work was good today. If symptoms have to do more with an acute bronchitis or reactive airway disease in the setting of an upper respiratory infection complicated by your long history of smoking. Recommendations: Rest, drink plenty of fluids. Follow-up with dialysis tomorrow at [facility] as planned. Take the prednisone as prescribed: Your next dose is due tomorrow. Take the azithromycin (antibiotic) as prescribed: Your next dose is due tomorrow. Please see inhaler as needed for shortness of breath: 2 puffs every 4-6 hours as needed To the emergency room for worsening shortness of breath. I left the number for primary care doctor: Dr Freeman. Call the office tomorrow for the next available follow-up appointment Regarding Cigarette Smoking: There are multiple personal reasons to want to quit smoking These reasons can inspire you to stop smoking for good. Here are just a few reasons to quit today : Your Health and Appearance: Your chances of cancer, heart attack, stroke, cataracts and other diseases will go down. You will cough less and breath better. You will experience less respiratory infections. Your skin may look healthier, and you may look tounger. Your teeth and fingernails will not be stained. Your Loved Ones: You children will be healthier (second hand smoke is dangerous to babies during , infants and children). women who breath in secondhand smoke over time are more likely to have miscarriage, have young babies from Sudden Syndrome, have babies that get sick more often. Children who breathe in secondhand smoke over time are more likely to have wheezing, more severe asthma attacks, pneumonia. There are resources to help you stop smokin. Call for Free Help: 2-928-Esfk-Now (176 550-6487). or in maltese: - KYLE-YA (303-469-7392). 2. Sign up for free texts: SmokefreeTXT: [place] [address], answer a few questions and you'll start receiving messages. 3. Visit the CDC website: www.cdc.gov/tobacco/campaign/tips/quit-smoking/ quitting-resources.html 4. Discusse further methods with your primary care physician. Prescriptions: Azithromycin [Zithromax 250 mg Tablet] 250 mg PO ASDIR PRN #6 tablet PRN Reason: Prednisone [Deltasone 20 mg Tablet] 3 tab PO DAILY 5 Days Referrals: FATIMAH FREEMAN MD [Primary Care Provider] - Follow up as needed (The number of a good primary care doctor affiliated with the Hospital: Call today for the next available appointment)
[2017-04-13] MEDS ORDERED: ALBUTEROL SULFATE HFA (90 MCG/PUFF) 8 GM MDI (1 MDI/ER DISP) IH PRN (15:34)
[2017-04-13 15:50] VITALS: BP 112/74
--- NOTE | 2017-04-14 03:57 | EKG REPORT ---
SEVERITY:- ABNORMAL ECG - SINUS RHYTHM ABNRM R PROG, CONSIDER ASMI OR LEAD PLACEMENT : Confirmed by: Kathy Mccray MD 14-Apr-2017 03:56:19
== END 2017-04-13 15:51 | disposition home or self-care (01) ==
LOC: ER 12:20
DX: J20.9 Acute bronchitis, unspecified (principal); I12.0 Hypertensive chronic kidney disease with stage 5 chronic kidney disease or end stage renal disease; N18.6 End stage renal disease; Z99.2 Dependence on renal dialysis; R05 Cough; R06.02 Shortness of breath; F17.210 Nicotine dependence, cigarettes, uncomplicated; Z88.0 Allergy status to penicillin; Z88.8 Allergy status to other drugs, medicaments and biological substances
CPT/HCPCS: 93005; 94640; 99285; 36415; 82553; 85025; 80053; 84484; 71020; 93010; A9270 ×3; J3490; J7512; J7620

== ENCOUNTER 2017-04-21 17:49 | Emergency (ER) | payer MEDICARE ==
[2017-04-21] MEDS ORDERED: LORAZEPAM INJ 2 MG/1 ML VIAL ONE (17:58)
[2017-04-21] MEDS ORDERED: KETAMINE HCL INJ 500 MG/10 ML VIAL ONE (18:24)
--- NOTE | 2017-04-21 18:34 | ER Document Report ---
ED General - General Chief Complaint: Seizure Stated Complaint: POSSIBLE SEIZURE Time Seen by Provider: 04/21/17 18:33 Cannot obtain history due to: Unstable vital signs, Altered mental status Notes: Patient is a 57-year-old male who presented by EMS with a tonic-clonic seizure witnessed at dialysis. No additional history can be obtained as at time of my assessment patient is critically unstable, tachycardic, hypertensive, not protecting his airway. TRAVEL OUTSIDE OF THE [place] IN LAST 30 DAYS: No - Related Data Allergies/Adverse Reactions: cyclosporine Allergy (Verified 04/13/17 12:30) Penicillins Allergy (Verified 04/13/17 12:30) Past Medical History - General Information source: Emergency Med Personnel Cannot obtain history due to: Unstable vital signs, Altered mental status - Social History Smoking Status: Unknown if Ever Smoked Family History: Reviewed & Not Pertinent - Past Medical History Cardiac Medical History: Reports: Hx Hypertension, Hx Peripheral Vascular Disease Denies: Hx Coronary Artery Disease Endocrine Medical History: Denies: Hx Diabetes Mellitus Type 1 Renal/ Medical History: Reports: Hx End Stage Renal Disease. Denies: Hx Peritoneal Dialysis Psychiatric Medical History: Reports: Hx Depression Past Surgical History: Reports: Hx Orthopedic Surgery - orthoscopic surg lt knee x2, Hx Vascular Surgery - AV fistula left forearm, Other - carotid artery stents bilat - Immunizations Hx Pneumococcal Vaccination: 07/23/16 Review of Systems - Review of Systems -: Yes ROS unobtainable due to patient's medical condition Physical Exam - Vital signs Vitals: Pulse Ox 96 04/21/17 18:02 Interpretation: Hypertensive, Tachycardic Notes: PHYSICAL EXAMINATION: GENERAL: GCS 3. Obtunded and unresponsive. HEAD: Atraumatic, normocephalic. EYES: Pupils equal round but sluggishly reactive. Sclera anicteric, conjunctiva are normal. ENT: nares patent, oropharynx clear without exudates. Dry mucous membranes. NECK: supple without lymphadenopathy LUNGS: Sonorous respirations, bilateral breath sounds with transmitted upper airway noise. HEART: Irregularly irregular tachycardia without murmurs ABDOMEN: Soft, obese abdomen. EXTREMITIES: Trace edema in the bilateral lower extremities. No cyanosis. NEUROLOGICAL: GCS 3. No response to noxious stimuli in any extremity. PSYCH: Obtunded, unresponsive SKIN: Warm, Dry, normal turgor, no rashes or lesions noted. Course - Re-evaluation Re-evalutation: 04/21/17 18:36 I assumed care from Dr. Boss shortly after arriving for my shift. The patient apparently was in status epilepticus having 4 distinct episodes of tonic -clonic jerking without return to normal mental status. These episodes of seizures occurred over the course of 30 minutes. At time of my initial assessment the patient is obtunded, GCS of 3, likely postictal but not at all protecting his airway at this time. Given the recurrence of his seizures despite multiple doses of benzodiazepines, I elected to proceed with intubation for airway protection and expectant management. Patient was intubated using ketamine and rocuronium as he is a dialysis patient and potassium levels are of concern at this time. Patient was noted to be in A. fib with rapid ventricular response. As he is a dialysis patient, will trial a small amount of normal saline 250 cc and monitor for response. If there is no response to the tachycardia, anticipate proceeding with diltiazem for rate control. Patient's blood pressures are within acceptable limits at the time this time currently at 156 systolic. Patient does apparently have a history of a brain aneurysm. No known history of seizures. A stat head CT will be obtained. Patient will be started on propofol infusion for seizure suppression as well as for sedation. [facility] will be obtained. A 2 g load of levetiracetam will be initiated. Patient will require transfer to a tertiary Medical Center with continuous EEG availability. Patient is critically ill at this time will require frequent reassessments. 04/21/17 19:23 Patient amount without any further seizure activity at this time. Tachycardia moderately improved after 250 cc of normal saline but he remains with tachycardic. I have contacted [facility] for ICU transfer as we do not have a neurologist or continuous EEG abilities 04/21/17 19:51 Patient's blood pressure has trended downwards towards 96 systolic at this time without any initiation of diltiazem. Will continue to hold on initiation of diltiazem at this time given the mild hypotension. I have discussed this case with the accepting physician at [facility] ICU . He has agreed to accept this patient in transfer. The venous blood gases obtained earlier does show a significant metabolic acidosis initial pH at 7.01. This is consistent with a metabolic acidosis likely secondary to elevated lactate in the setting of repeated seizures. Will check a lactate and repeat gas in the next 1 hour 04/21/17 19:58 Patient's hypertension is worsened now with systolics in the 80s. The propofol infusion has been discontinued. An amp of bicarbonate will be administered. Will obtain a stat portable repeat chest x-ray to exclude a acute tension pneumothorax although patient continues with bilateral breath sounds, no JVD. Will also begin more liberal fluid infusion at this time. 04/21/17 20:11 Repeat chest x-ray did not demonstrate any evidence of a pneumothorax. Propofol infusion has been discontinued and blood pressures are stabilizing into the low 90s at this time. 04/21/17 20:32 Patient's blood pressure has now normalized to 132 systolic. Will slow on fluids and restart propofol. No seizure activity during period off of propofol and no response to noxious stimuli at this time. 04/21/17 21:21 Patient is much more responsive at this time, bucking at the vent somewhat requiring increased titration of the propofol infusion. His blood pressure is completely normalized at this time. He is spontaneously converted into normal sinus rhythm and diltiazem was never administered. Discussed today's care with his son-in-law at the bedside as well as his granddaughter. Transport is less than 5 minutes away. - Vital Signs Vital signs: Temp Pulse Resp BP Pulse Ox 97.8 F 17 147/82 H 96 04/21/17 21:21 04/21/17 21:21 04/21/17 21:21 04/21/17 21:21 - Laboratory Result Diagrams: 04/21/17 21:10 04/21/17 17:59 Laboratory results interpreted by me: 04/21/17 04/21/17 04/21/17 17:58 17:59 19:10 WBC RBC Hgb MCV MCH RDW Seg Neutrophils % Lymphocytes % Absolute Neutrophils VBG pH 7.01 L* VBG HCO3 11.8 L Chloride 96 L Carbon Dioxide 9 L* Anion Gap 38 H BUN 22 H Creatinine 7.10 H Est GFR ( Amer) 10 L Est GFR (Non-Af Amer) 8 L Glucose 116 H POC Glucose 118 H Calcium 8.3 L Magnesium 2.4 H Direct Bilirubin 0.6 H Lipase 380.5 H 04/21/17 21:10 WBC 15.2 H RBC 3.86 L Hgb 13.0 L MCV 104 H MCH 33.7 H RDW 15.4 H Seg Neutrophils % 86.2 H Lymphocytes % 5.1 L Absolute Neutrophils 13.1 H VBG pH VBG HCO3 Chloride Carbon Dioxide Anion Gap BUN Creatinine Est GFR ( Amer) Est GFR (Non-Af Amer) Glucose POC Glucose Calcium Magnesium Direct Bilirubin Lipase - Diagnostic Test Radiology reviewed: Image reviewed, Reports reviewed Radiology results interpreted by me: 04/22/17 03:31 Chest x-ray: ET tube is in the appropriate location. CT Head: No acute intracranial bleed - EKG Interpretation by Me Additional EKG results interpreted by me: 04/22/17 03:31 Atrial fibrillation with rapid ventricular response. Rate is 138. No acute ST elevations or depressions. QTC is 479. Procedures - Intubation Orotracheal Airway evaluation: Copious secretions, Large tongue, Obese Mallampati Classification: Class 1 Intubation method: Orotracheal Blade type: Contreras Blade size: 4 ETT size: 8.0 ETT secured at: Gums ETT secured at (cm): 24 Breath Sounds after Intubation: Equal End tidal CO2 confirmed: Yes Ventilator settings: SIMV Tidal volume: 500 FiO2: 60 Respirations: 16 Pressure support: 0 PEEP: 8 Post Intubation Xray: Yes Intubation Complications: No complications Critical Care Note - Critical Care Note Total time excluding time spent on procedures (mins): 90 Comments: Critical care time spent obtaining history from patient or surrogate, discussions with consultants, development of treatment plan with patient or surrogate, evaluation of patient's response to treatment, examination of patient , ordering and performing treatments and interventions, ordering and review of laboratory studies, re-evaluation of patient's condition, ordering and review of radiographic studies and review of old charts Discharge - Discharge Clinical Impression: ESRD (end stage renal disease), Status epilepticus, Atrial fibrillation with rapid ventricular response, Metabolic acidosis Condition: Critical Disposition: [facility]
[2017-04-21 18:36] LABS: ALANINE AMINOTRANSFERASE 25 U/L (21-72); ALKALINE PHOSPHATASE 55 U/L (38-126); ASPARTATE AMINO TRANSFERASE 24 U/L (17-59); BILIRUBIN,DIRECT 0.6 mg/dL (0.0-0.4); BILIRUBIN,TOTAL 0.7 mg/dL (0.2-1.3); BLOOD UREA NITROGEN 22 mg/dL (7-20); CALCIUM 8.3 mg/dL (8.4-10.2); GLUCOSE 116 mg/dL (75-110); LIPASE 380.5 U/L (23-300); MAGNESIUM 2.4 mg/dL (1.6-2.3); POTASSIUM 3.8 mmol/L (3.6-5.0); SODIUM 142.7 mmol/L (137-145); TOTAL PROTEIN 7.8 g/dL (6.3-8.2)
--- NOTE | 2017-04-21 18:36 | ER Document Report ---
Doctor's Note Notes: 04/21/17 18:31 The patient's wounds for seizure-like activity. Patient is coming from dialysis with seizure activity no history of seizure activity. Patient was given 2 of Versed by EMS that the patient was postictal with tonic-clonic seizure activity and out. At bedside patient having tonic-clonic seizure activity I did ask nursing staff to obtain 2 mg of Ativan however seizure activity only lasted for approximately 30 seconds. Patient was then postictal however maintaining his airway. Continue with IV establishment of blood work. Patient basically was then with naproxen 5-10 minutes later to reevaluate the patient upon stimulation patient patient was able to turn and acknowledge my presence however shortly afterwards patient did have another tonic-clonic seizure. This lasted for approximately again 30-45 seconds to give patient Ativan. Request patient into the trauma room more likely patient will need to be intubated as well as seizure activity is stopped patient now has snoring respirations. At this time Dr. Freitas has injured ER and agree to take care of the patient
[2017-04-21] MEDS ORDERED: PROPOFOL 100 ML IV ONE (18:38)
[2017-04-21] MEDS ORDERED: LEVETIRACETAM 1500 MG/NACL-ISO 100 ML IV ONE (18:39)
[2017-04-21] MEDS ORDERED: PROPOFOL 100 ML IV PRN (18:39)
[2017-04-21] MEDS ORDERED: ROCURONIUM BROMIDE INJ 50 MG/5 ML VIAL IV ONE (18:40)
[2017-04-21] MEDS ORDERED: KETAMINE HCL INJ 500 MG/10 ML VIAL IV ONE (18:40)
[2017-04-21] MEDS ORDERED: NORMAL SALINE 1000 ML 250 ML IV ONE ×2 (18:41→19:21)
[2017-04-21 18:43] LABS: ALCOHOL < 10 mg/dL (NONE DETECTED)
[2017-04-21 18:51] LABS: ANION GAP 38 (5-19); CHLORIDE 96 mmol/L (98-107)
[2017-04-21 18:52] LABS: CARBON DIOXIDE 9 mmol/L (22-30)
--- NOTE | 2017-04-21 18:58 | RADIOLOGY REPORT (SQ) ---
EXAM DESCRIPTION: CHEST SINGLE VIEW COMPLETED DATE/TIME: 04/21/2017 6:49 pm REASON FOR STUDY: post-intubation COMPARISON: 04/13/2017 EXAM PARAMETERS: NUMBER OF VIEWS: One view. TECHNIQUE: Single frontal radiographic view of the chest acquired. RADIATION DOSE: NA LIMITATIONS: None. FINDINGS: LUNGS AND PLEURA: Left basilar opacity. No pneumothorax. MEDIASTINUM AND HILAR STRUCTURES: No masses. Contour normal. HEART AND VASCULAR STRUCTURES: Heart enlarged without overt failure. BONES: No acute findings. HARDWARE: ET tube is in appropriate location. Nasogastric tube tip below the hemidiaphragm. OTHER: No other significant finding. IMPRESSION: Cardiac enlargement without failure. Retrocardiac airspace disease. ET tube in appropriate location. TECHNICAL DOCUMENTATION: JOB ID: [id number]
--- NOTE | 2017-04-21 19:14 | RADIOLOGY REPORT (SQ) ---
EXAM DESCRIPTION: CT HEAD WITHOUT COMPLETED DATE/TIME: 04/21/2017 7:03 pm REASON FOR STUDY: seizure COMPARISON: None. TECHNIQUE: Axial images acquired through the brain without intravenous contrast. Images reviewed wi th bone, brain and subdural windows. Images stored on PACS. All CT scanners at this facility use dose modulation, iterative reconstruction, and/or weight based d osing when appropriate to reduce radiation dose to as low as reasonably achievable (ALARA). [facility]: Dose Right [facility]: CareDose [facility]: Dose Right [facility]: Teradose 4D [facility]: Intelligent Mobile Support RADIATION DOSE: 64.61 mGy. LIMITATIONS: None. FINDINGS: VENTRICLES: Normal size and contour. CEREBRUM: Chronic atrophy with dilatation of the right frontal horn right frontal region. Postsurgic al changes. No hemorrhage. No mass effect. No evidence for acute infarction. CEREBELLUM: No masses. No hemorrhage. No alteration of density. No evidence for acute infarction. EXTRAAXIAL SPACES: No fluid collections. No masses. ORBITS AND GLOBE: No intra- or extraconal masses. Normal contour of globe without masses. CALVARIUM: Frontal craniotomy. PARANASAL SINUSES: No fluid or mucosal thickening. SOFT TISSUES: No mass or hematoma. OTHER: No other significant finding. IMPRESSION: Chronic postsurgical changes right frontal lobe. No acute intracranial process. TECHNICAL DOCUMENTATION: JOB ID: [id number] Quality ID # [id number]: Final reports with documentation of one or more dose reduction techniques (e.g., Au tomated exposure control, adjustment of the mA and/or kV according to patient size, use of iterative reconstruction technique) 2010 [employer]- All Rights Reserved
[2017-04-21] MEDS ORDERED: CEFTRIAXONE 1 GM/D5W RTU 50 ML IV ONE (19:18)
[2017-04-21] MEDS ORDERED: DILTIAZEM HCL/D5W 125 ML IV PRN (19:22)
[2017-04-21] MEDS ORDERED: DILTIAZEM HCL INJ 25 MG/5 ML VIAL IV ONE (19:22)
[2017-04-21 19:28] LABS: VENOUS BLOOD BASE EXCESS -19.1 mmol/L; VENOUS BLOOD HCO3 11.8 mmol/L (20-32); VENOUS BLOOD PCO2 47.6 mmHg (35-63)
[2017-04-21 19:35] LABS: VENOUS BLOOD PH 7.01 (7.30-7.42)
[2017-04-21] MEDS ORDERED: NORMAL SALINE 1000 ML 1,000 ML IV ONE (19:57)
[2017-04-21] MEDS ORDERED: LEVOFLOXACIN 750 MG/D5W RTU 150 ML IV ONE (19:58)
[2017-04-21] MEDS ORDERED: SODIUM BICARBONATE 8.4% INJ 50 MEQ/50 ML DISP.SYRIN IV ONE (19:58)
[2017-04-21] MEDS ORDERED: SODIUM BICARBONATE 8.4% INJ 50 MEQ/50 ML DISP.SYRIN ONE (20:01)
--- NOTE | 2017-04-21 20:32 | RADIOLOGY REPORT (SQ) ---
EXAM DESCRIPTION: CHEST SINGLE VIEW COMPLETED DATE/TIME: 04/21/2017 8:21 pm REASON FOR STUDY: hypotension, intubated COMPARISON: 04/21/2017 1840 hours EXAM PARAMETERS: NUMBER OF VIEWS: One view TECHNIQUE: Single frontal radiograph of the chest. RADIATION DOSE: N/A LIMITATIONS: None. FINDINGS: TEMPORARY SUPPORT DEVICES:ETT in expected location. LUNGS AND PLEURA: Mild retrocardiac airspace disease. Right lung is clear. No effusions. No masses. No pneumothorax. MEDIASTINUM AND HILAR STRUCTURES: No masses. Contour normal. HEART AND VASCULAR STRUCTURES: Heart enlarged. Normal vascularity. Aorta normal for age. BONES: No acute findings. OTHER: No other significant finding. IMPRESSION: Cardiac enlargement without failure. Retrocardiac airspace disease. SUPPORT DEVICE(S) IN EXPECTED LOCATIONS. TECHNICAL DOCUMENTATION: JOB ID: [id number] [employer]- All Rights Reserved
--- NOTE | 2017-04-21 20:49 | EKG REPORT ---
SEVERITY:- ABNORMAL ECG - ATRIAL FIBRILLATION, V-RATE 99-179 MULTIPLE PREMATURE COMPLEXES, VENT ABERRANT COMPLEX, POSSIBLY SUPRAVENTRICULAR ST DEPRESSION, CONSIDER ISCHEMIA, LAT LEADS BORDERLINE PROLONGED QT INTERVAL : Confirmed by: Jennifer Harvey 21-Apr-2017 20:48:40
[2017-04-21 21:29] VITALS: BP 147/82
[2017-04-21 21:30] LABS: ABSOLUTE LYMPHOCYTES (AUTO) 0.8 10^3/uL (0.5-4.7); ABSOLUTE MONOCYTES (AUTO) 1.2 10^3/uL (0.1-1.4); ABSOLUTE NEUT (AUTO) 13.1 10^3/uL (1.7-8.2); BASOPHILS % (AUTO) 0.3 % (0-2); EOSINOPHILS % (AUTO) 0.2 % (0-6); HEMATOCRIT 40.3 % (37.9-51.0); HGB HCT DIFFERENCE -1.3; LYMPHOCYTES % (AUTO) 5.1 % (13-45); MEAN CORPUSCULAR HEMOGLOBIN 33.7 pg (27.0-33.4); MEAN CORPUSCULAR HGB CONC 32.3 g/dL (32.0-36.0); MEAN CORPUSCULAR VOLUME 104 fl (80-97); MONOCYTES % (AUTO) 8.2 % (3-13); RED BLOOD COUNT 3.86 10^6/uL (4.35-5.55); RED CELL DISTRIBUTION WIDTH 15.4 % (11.5-14.0); SEGMENTED NEUTROPHILS % (AUTO) 86.2 % (42-78); WHITE BLOOD COUNT 15.2 10^3/uL (4.0-10.5)
== END 2017-04-21 21:45 | disposition short-term general hospital (02) ==
LOC: ER 17:49
PROC: 0BH17EZ Insertion of Endotracheal Airway into Trachea, Via Natural or Artificial Opening (ICD-10-PCS; principal; 2017-04-21)
DX: I12.0 Hypertensive chronic kidney disease with stage 5 chronic kidney disease or end stage renal disease (principal); E10.22 Type 1 diabetes mellitus with diabetic chronic kidney disease; N18.6 End stage renal disease; Z99.2 Dependence on renal dialysis; G40.901 Epilepsy, unspecified, not intractable, with status epilepticus; I48.91 Unspecified atrial fibrillation; E87.2 Acidosis; E10.51 Type 1 diabetes mellitus with diabetic peripheral angiopathy without gangrene; Z88.8 Allergy status to other drugs, medicaments and biological substances; R00.0 Tachycardia, unspecified; Z88.0 Allergy status to penicillin
CPT/HCPCS: 93005; 99291; 99292; 96375; 96365; 96368; 36415; 82962; 80307; 83690; 83735; 85025; 80053; 82803; 83605; 71010; 70450; 93010; 31500; J2060; J3490; J0696; J1956

== ENCOUNTER → 2017-05-02 | Day surgery (SDC) | payer MEDICARE, MEDICAID ==
[~2017-05-02] MED LIST: FENTANYL CITRATE INJ/PF 100 MCG/2 ML AMPUL ONE; HEPARIN SOD (PORCINE) 5,000 UNIT/ML 1 ML SYRINGE ONE; LIDOCAINE 0.5% INJ-PF (5 MG/ML) 50 ML SDV ONE; MIDAZOLAM 2 MG/2 ML INJ ONE
--- NOTE | 2017-05-02 13:03 | PDOC H&P ---
General Chief Complaint: The patient's fistula has been malfunctioning, decreased flows. He is referred across for attempted - Current Medications/Allergies Home Medications: Acetaminophen [Tylenol 325 mg Tablet] 650 mg PO Q6HP PRN 04/10/17 Aspirin [Aspirin 81 mg Chewable Tablet] 81 mg PO DAILY 04/10/17 Atorvastatin Calcium [Lipitor 80 mg Tablet] 80 mg PO QHS 04/10/17 Calcium Carbonate 750 Mg [Tums E-X 750 Mg] 3,000 mg PO MEALS PRN 04/10/17 Calcium Carbonate 750 Mg [Tums E-X 750mg] 1,500 mg PO BID 04/10/17 Cyclobenzaprine HCl [Flexeril 5 mg Tablet] 5 mg PO Q12 PRN 04/10/17 Magnesium Hydroxide [Milk of Magnesia] 400 mg PO DAILYP PRN 04/10/17 Midodrine HCl [Proamatine 5 mg Tablet] 5 mg PO ASDIR PRN 04/10/17 Nitroglycerin [Nitrostat 0.4 mg (1/150 Gr) Tabs 25/Bottle] 1 tab SL Q5MP PRN Trazodone HCl [Desyrel] 100 mg PO QHS 04/10/17 Albuterol Sulfate [Proair Hfa Inhalation Aerosol 8.5 gm Mdi] 2 puff IH Q4 PRN Cyanocobalamin (Vitamin B-12) [Vitamin B12] 1,000 mcg PO DAILY 05/02/17 Levetiracetam [Keppra 500 mg Tablet] 1,000 mg PO .T,TH,S,DEVRIES 05/02/17 Levetiracetam [Keppra 500 mg Tablet] 500 mg PO .M,W,F 05/02/17 Ranitidine HCl [Zantac 150 mg Tablet] 150 mg PO BID 05/02/17 Allergies/Adverse Reactions: cyclosporine Allergy (Verified 04/13/17 12:30) Penicillins Allergy (Verified 04/13/17 12:30) Past Medical History Cardiac Medical History: Reports: Coronary Artery Disease, Myocardial Infarction - ?, Hypertension - MEDICATED, Peripheral Vascular Disease Pulmonary Medical History: Reports: Chronic Obstructive Pulmonary Disease (COPD ) - ALBUTEROL Denies: Asthma - ?, Bronchitis - ?, Pneumonia Neurological Medical History: Reports: Seizures - March,X5 NEW ISSUE Endocrine Medical History: Denies: Diabetes Mellitus Type 1 Renal/ Medical History: Reports: End Stage Renal Disease Musculoskeltal Medical History: Denies: Arthritis Psychiatric Medical History: Reports: Depression Hematology: Reports: Anemia - DIALYSIS Past Surgical History Past Surgical History: Reports: Orthopedic Surgery - orthoscopic surg lt knee x2 , Vascular Surgery - AV fistula left forearm, Other - carotid artery stents bilat Family History Family History: Reviewed & Not Pertinent Parental Family History Reviewed: No Children Family History Reviewed: No Sibling(s) Family History Reviewed.: No Social History Smoking Status: Current Every Day Smoker Frequency of Alcohol Use: None Hx Recreational Drug Use: No Drugs: None Hx Prescription Drug Abuse: No Physical Exam Vital Signs: Temp Pulse Resp BP Pulse Ox 98.1 F 90 20 111/79 99 05/02/17 12:28 05/02/17 12:28 05/02/17 12:28 05/02/17 12:28 05/02/17 12:28 Intake & Output 05/01/17 05/02/17 05/03/17 06:59 06:59 06:59 Weight 103.8 kg Additional comments: Constitutional: Well-developed well-nourished gentleman. No apparent acute distress. Eyes: Mucous membranes pink and moist, pupils equal and reactive to light. Conjunctiva normal. Cornea normal. ENT: Hearing grossly normal. External pinna normal to inspection. Teeth missing, edentulous. Tongue normal to inspection. Cardiac: Heart sounds 1 and 2 normal. No murmurs. Respiratory breath sounds are present bilaterally, normal. Normal respiratory effort. Psychiatric: Judgment, memory, insight seem normal. Mood is pleasant and appropriate. Extremities: Upper extremities show normal range of movement. Pulses present noted to the radial arteries. Capillary refill normal. No cyanosis noted. No muscle wasting noted. Left-sided AV fistula, brachiocephalic, much dilated. About 8 years old. Impression/Plan Impression: #1 malfunctioning AV fistula, left brachiocephalic. 2. End-stage renal disease on hemodialysis. 3. Seizure disorder. 4. Coronary artery disease. 5. Hypertension.
--- NOTE | 2017-05-02 13:38 | PDOC DISCHARGE SUMMARY ---
Discharge Summary (SDC) - Discharge Final Diagnosis: #1 malfunctioning AV fistula, left brachiocephalic. 2. End-stage renal disease on hemodialysis. 3. Seizure disorder. 4. Coronary artery disease. 5. Hypertension. Date of Surgery: 05/02/17 Discharge Date: 05/02/17 Condition: Fair Treatment or Instructions: Discharge home [after recovery per ASU criteria]. Diet , [renal],as tolerated, when fully awake advance as tolerated. Activities within moderation encouraged. Follow up in my office by appointment in about [2 weeks]. Call for appointment. Leave wounds [covered], [keep clean and dry, until hemodialysis . Hold of on school/work [until evaluation in office]. May shower [in 48 hrs], [try to keep operated area as dry as possible]. Discharge Diet: Other (Comments) - Renal
--- NOTE | 2017-05-02 13:43 | Operative Report ---
Operative Report DATE OF SURGERY: 05/02/17 PREOPERATIVE DIAGNOSIS: #1 malfunctioning AV fistula, left brachiocephalic. 2. End-stage renal disease on hemodialysis. 3. Seizure disorder. 4. Coronary artery disease. 5. Hypertension. POSTOPERATIVE DIAGNOSIS: #1 malfunctioning AV fistula, left brachiocephalic. Post angiogram. 2. End-stage renal disease on hemodialysis. 3. Seizure disorder. 4. Coronary artery disease. 5. Hypertension. OPERATION: #1 Needle access in arteriovenous fistula. 2. Angiogram interpretation. SURGEON: YAO COLVIN 1ST MATERIALS MANAGEMENT CLERK: None ANESTHESIA: Moderate Sedation TISSUE REMOVED OR ALTERED: None COMPLICATIONS: None ESTIMATED BLOOD LOSS: 2 mL. INTRAOPERATIVE FINDINGS: Of a well-established left arm brachiocephalic fistula. Dilated. The entire circumflex appears satisfactory although large and tortuous. The inflow artery looks large easily about 8 mm and the anastomosis there was an 8 mm well. No stenoses are noted in the entire circuit up to and including the superior vena cava. Reduced flow may be due to the inflow through the brachial artery and flow volume measurements are pertinent. We will schedule fistula ultrasound in office for this purpose. PROCEDURE: PROCEDURE: After verifying the procedure and having obtained informed consent, the patient's left arm was prepared with Chlorhexidine and draped out with sterile linen. Local anesthesia infiltrated. Percutaneous access into the fistula ,[ antegrade], obtained about [2 cm] from the arteriovenous anastomosis using a 18-gauge needle A 0.035 [place] wire was inserted, and over this, a 6 Hungarian short introducer was placed. to the introducer. Angiogram demonstrated flow throughout fistula. The instrumentation was now withdrawn over and pressure for 10 minutes. Dressings applied, procedure concluded. Exposure time: 1.8 minutes Radiation: 10.8 mcg/cm Contrast: 25 mL of Isovue-300, low osmolality. DICTATING PHYSICIAN: YAO COLVIN M.D. cc: YAO COLVIN M.D. ([id number]) >>
[2017-05-02 14:56] VITALS: BP 114/74
--- NOTE | 2017-05-11 07:28 | RADIOLOGY REPORT (SQ) ---
EXAM DESCRIPTION: FISTULOGRAM COMPLETED DATE/TIME: 05/11/2017 7:19 am REASON FOR STUDY: T82.858A T82.858A STENOSIS OF OTHER VASCULAR PROSTH DEV/GRFT, INIT COMPARISON: None. FLUOROSCOPY TIME: 1.8 minutes. 9 images saved to PACS. TECHNIQUE: Intra-operative images acquired during surgical procedure to evaluate progress. NUMBER OF IMAGES: 9 images. LIMITATIONS: None. FINDINGS: Imaging in fluoroscopy during left upper extremity dialysis access evaluation and plasty b y Dr. Mittal . Please refer to the operative report for further details. IMPRESSION: INTRA PROCEDURAL IMAGING ABOVE . COMMENT: Quality ID [id number]: Final reports for procedures using fluoroscopy that document radiation exp osure indices, or exposure time and number of fluorographic images (if radiation exposure indices are not available) Please consult full operative report of the attending physician for description of the procedure. TECHNICAL DOCUMENTATION: JOB ID: [id number] [employer]- All Rights Reserved
== END ==
LOC: SC 11:02
PROVIDERS: ATTEND Surgery
PROC: 057F3DZ Dilation of Left Cephalic Vein with Intraluminal Device, Percutaneous Approach (ICD-10-PCS; principal; 2017-05-02)
DX: T82.858A Stenosis of other vascular prosthetic devices, implants and grafts, initial encounter (principal); Y83.2 Surgical operation with anastomosis, bypass or graft as the cause of abnormal reaction of the patient, or of later complication, without mention of misadventure at the time of the procedure; I12.0 Hypertensive chronic kidney disease with stage 5 chronic kidney disease or end stage renal disease; N18.6 End stage renal disease; Z99.2 Dependence on renal dialysis; I25.10 Atherosclerotic heart disease of native coronary artery without angina pectoris; J44.9 Chronic obstructive pulmonary disease, unspecified; D64.9 Anemia, unspecified; I73.9 Peripheral vascular disease, unspecified; G40.909 Epilepsy, unspecified, not intractable, without status epilepticus; F17.210 Nicotine dependence, cigarettes, uncomplicated; Z79.82 Long term (current) use of aspirin; Z79.51 Long term (current) use of inhaled steroids; Z79.899 Other long term (current) drug therapy; Z88.0 Allergy status to penicillin; I25.2 Old myocardial infarction
CPT/HCPCS: 36415; 84132; 36901; C1752; C1894; Q9967; C1769; J2250; J1644 ×2; J3010; J3490

== ENCOUNTER 2017-06-18 17:06 | Emergency (ER) | payer MEDICARE, MEDICAID ==
[2017-06-18 17:16] VITALS: BP 152/88
--- NOTE | 2017-06-18 17:41 | ER Document Report ---
HPI - HPI Patient complains to provider of: Left arm, left leg numbness Onset: Last week Onset/Duration: Gradual, Intermittent, Waxing and waning Quality of pain: Sharp Pain Level: 4 Associated Symptoms: None Exacerbated by: Denies Relieved by: Denies Similar symptoms previously: No Recently seen / treated by doctor: Yes Notes: Patient is a 57-year-old male with history of end-stage renal failure on Monday , Monday, Monday dialysis. Patient reports a one-week history of intermittent numbness from his left elbow to his left wrist and from his left knee to his left foot. These symptoms come and go spontaneously. No motor weakness. Patient states his military science teacher is aware of this. Patient is post follow-up with his primary care provider. Patient denies any trauma. No headache, dizziness, neck pain, focal weakness. - CARDIOVASCULAR Cardiovascular: DENIES: Chest pain - DERM Skin Color: Normal Past Medical History - General Information source: [facility], [facility] - Social History Smoking Status: Current Every Day Smoker Chew tobacco use (# tins/day): No Frequency of alcohol use: None Drug Abuse: None Family History: Reviewed & Not Pertinent Patient has suicidal ideation: No Patient has homicidal ideation: No - Past Medical History Cardiac Medical History: Reports: Hx Coronary Artery Disease, Hx Heart Attack - ?, Hx Hypertension - MEDICATED, Hx Peripheral Vascular Disease Pulmonary Medical History: Reports: Hx COPD - ALBUTEROL Denies: Hx Asthma - ?, Hx Bronchitis - ?, Hx Pneumonia Neurological Medical History: Reports: Hx Cerebrovascular Accident - X3,LAST OVER 1 YR,BRAIN ANUERYSM 03/2016, Hx Seizures - March,X5 NEW ISSUE Endocrine Medical History: Denies: Hx Diabetes Mellitus Type 1 Renal/ Medical History: Reports: Hx End Stage Renal Disease. Denies: Hx Peritoneal Dialysis - hemo Musculoskeltal Medical History: Denies Hx Arthritis Psychiatric Medical History: Reports: Hx Depression Past Surgical History: Reports: Hx Orthopedic Surgery - orthoscopic surg lt knee x2, Hx Vascular Surgery - AV fistula left forearm, Other - carotid artery stents bilat - Immunizations Hx Diphtheria, Pertussis, Tetanus Vaccination: Yes Hx Pneumococcal Vaccination: 07/23/16 Vertical Provider Document - CONSTITUTIONAL Agree With Documented VS: Yes Exam Limitations: No Limitations General Appearance: WD/WN, No Apparent Distress - INFECTION CONTROL TRAVEL OUTSIDE OF THE [place] IN LAST 30 DAYS: No - HEENT HEENT: Atraumatic, Normocephalic - NECK Neck: Normal Inspection, Supple - RESPIRATORY Respiratory: Breath Sounds Normal, No Respiratory Distress O2 Sat by Pulse Oximetry: 97 - CARDIOVASCULAR Cardiovascular: Regular Rate, Regular Rhythm - GI/ABDOMEN Gastrointestinal: Abdomen Soft, Abdomen Non-Tender, Normal Bowel Sounds - BACK Back: Normal Inspection - MUSCULOSKELETAL/EXTREMETIES Musculoskeletal/Extremeties: MAEW, FROM, Non-Tender - NEURO Level of Consciousness: Awake, Alert, Appropriate Motor/Sensory: No Motor Deficit, No Sensory Deficit - DERM Integumentary: Warm, Dry Course - Vital Signs Vital signs: Temp Pulse Resp BP Pulse Ox 98.1 F 85 16 152/88 H 97 06/18/17 17:12 06/18/17 17:12 06/18/17 17:12 06/18/17 17:12 06/18/17 17:12 - EKG Interpretation by Fl EKG shows normal: Sinus rhythm Rate: Normal - 80 Rhythm: NSR [place]/QRS: No: Right axis deviation, Left axis deviation Additional EKG results interpreted by me: 06/18/17 17:48 Normal sinus rhythm at 80, no acute ST-T wave changes.
[2017-06-18 18:29] LABS: ABSOLUTE BASOPHILS # (AUTO) 0.1 10^3/uL (0.0-0.2); ABSOLUTE EOSINOPHILS # (AUTO) 0.4 10^3/uL (0.0-0.6); ABSOLUTE LYMPHOCYTES (AUTO) 1.4 10^3/uL (0.5-4.7); ABSOLUTE MONOCYTES (AUTO) 0.4 10^3/uL (0.1-1.4); ABSOLUTE NEUT (AUTO) 3.1 10^3/uL (1.7-8.2); BASOPHILS % (AUTO) 1.2 % (0-2); EOSINOPHILS % (AUTO) 6.9 % (0-6); HEMATOCRIT 33.4 % (37.9-51.0); HEMOGLOBIN 11.6 g/dL (13.5-17.0); HGB HCT DIFFERENCE 1.4; LYMPHOCYTES % (AUTO) 26.3 % (13-45); MEAN CORPUSCULAR HEMOGLOBIN 34.5 pg (27.0-33.4); MEAN CORPUSCULAR HGB CONC 34.7 g/dL (32.0-36.0); MEAN CORPUSCULAR VOLUME 99 fl (80-97); MONOCYTES % (AUTO) 7.9 % (3-13); RED BLOOD COUNT 3.36 10^6/uL (4.35-5.55); RED CELL DISTRIBUTION WIDTH 13.9 % (11.5-14.0); SEGMENTED NEUTROPHILS % (AUTO) 57.7 % (42-78); WHITE BLOOD COUNT 5.5 10^3/uL (4.0-10.5)
--- NOTE | 2017-06-18 20:09 | RADIOLOGY REPORT (SQ) ---
EXAM DESCRIPTION: CT HEAD WITHOUT COMPLETED DATE/TIME: 06/18/2017 8:00 pm REASON FOR STUDY: numbness left side COMPARISON: 04/21/2017 TECHNIQUE: Axial images acquired through the brain without intravenous contrast. Images reviewed wi th bone, brain and subdural windows. Images stored on PACS. All CT scanners at this facility use dose modulation, iterative reconstruction, and/or weight based d osing when appropriate to reduce radiation dose to as low as reasonably achievable (ALARA). [facility]: Dose Right [facility]: CareDose [facility]: Dose Right [facility]: Teradose 4D [facility]: [employer] RADIATION DOSE: Up-to-date CT equipment and radiation dose reduction techniques were employed. CTDIv ol: 64.6 mGy. DLP: 1292 mGy-cm.mGy. LIMITATIONS: None. FINDINGS: VENTRICLES: Stable. CEREBRUM: No masses. No hemorrhage. No midline shift. Areas of low density in the white matter mos t likely due to chronic ischemic change. No evidence for acute infarction. CEREBELLUM: No masses. No hemorrhage. No alteration of density. No evidence for acute infarction. EXTRAAXIAL SPACES: Age-related involutional change. No fluid collections. No masses. ORBITS AND GLOBE: No intra- or extraconal masses. Normal contour of globe without masses. CALVARIUM: No fracture. PARANASAL SINUSES: No fluid or mucosal thickening. SOFT TISSUES: No mass or hematoma. OTHER: No other significant finding. IMPRESSION: CHRONIC CHANGES OF ATROPHY AND ISCHEMIA. NO ACUTE PROCESS. TECHNICAL DOCUMENTATION: JOB ID: [id number] Quality ID # [id number]: Final reports with documentation of one or more dose reduction techniques (e.g., Au tomated exposure control, adjustment of the mA and/or kV according to patient size, use of iterative reconstruction technique) 2010 [employer]- All Rights Reserved
[2017-06-18 21:37] LABS: ALANINE AMINOTRANSFERASE 27 U/L (21-72); ALBUMIN 4.2 g/dL (3.5-5.0); ALKALINE PHOSPHATASE 52 U/L (38-126); ANION GAP 16 (5-19); ASPARTATE AMINO TRANSFERASE 17 U/L (17-59); BILIRUBIN,DIRECT 0.5 mg/dL (0.0-0.4); BILIRUBIN,TOTAL 0.5 mg/dL (0.2-1.3); BLOOD UREA NITROGEN 31 mg/dL (7-20); CALCIUM 8.4 mg/dL (8.4-10.2); CARBON DIOXIDE 26 mmol/L (22-30); CHLORIDE 102 mmol/L (98-107); CREATININE RESULT 10.38 mg/dL (0.52-1.25); GLUCOSE 90 mg/dL (75-110); POTASSIUM 4.3 mmol/L (3.6-5.0); SODIUM 144.3 mmol/L (137-145); TOTAL PROTEIN 6.7 g/dL (6.3-8.2)
--- NOTE | 2017-06-18 22:03 | EKG REPORT ---
SEVERITY:- BORDERLINE ECG - SINUS RHYTHM BORDERLINE PROLONGED QT INTERVAL : Confirmed by: Jennifer Harvey 18-Jun-2017 22:03:06
== END 2017-06-18 20:22 | disposition home or self-care (01) ==
LOC: ER 17:06
DX: R20.0 Anesthesia of skin (principal); F17.200 Nicotine dependence, unspecified, uncomplicated; I25.10 Atherosclerotic heart disease of native coronary artery without angina pectoris; I12.0 Hypertensive chronic kidney disease with stage 5 chronic kidney disease or end stage renal disease; N18.6 End stage renal disease; Z99.2 Dependence on renal dialysis; I25.2 Old myocardial infarction; Z86.73 Personal history of transient ischemic attack (TIA), and cerebral infarction without residual deficits
CPT/HCPCS: 36415; 70450; 80053; 84484; 85025; 93005; 93010; 99284

== ENCOUNTER 2017-08-14 09:58 | Day surgery (SDC) | payer MEDICARE, MEDICAID ==
[~2017-08-14 09:58] MED LIST changes: -FENTANYL CITRATE INJ/PF 100 MCG/2 ML AMPUL ONE; -HEPARIN SOD (PORCINE) 5,000 UNIT/ML 1 ML SYRINGE ONE; -MIDAZOLAM 2 MG/2 ML INJ ONE
[2017-08-14 10:36] LABS: HEMATOCRIT 32.9 % (37.9-51.0); HEMOGLOBIN 11.6 g/dL (13.5-17.0); HGB HCT DIFFERENCE 1.9; MEAN CORPUSCULAR HEMOGLOBIN 33.8 pg (27.0-33.4); MEAN CORPUSCULAR HGB CONC 35.2 g/dL (32.0-36.0); MEAN CORPUSCULAR VOLUME 96 fl (80-97); RED BLOOD COUNT 3.43 10^6/uL (4.35-5.55); RED CELL DISTRIBUTION WIDTH 13.9 % (11.5-14.0); WHITE BLOOD COUNT 7.3 10^3/uL (4.0-10.5)
[2017-08-14 10:57] LABS: BLOOD UREA NITROGEN 37 mg/dL (7-20); CALCIUM 9.7 mg/dL (8.4-10.2); CARBON DIOXIDE 25 mmol/L (22-30); CHLORIDE 101 mmol/L (98-107); CREATININE RESULT 10.99 mg/dL (0.52-1.25); GLUCOSE 87 mg/dL (75-110)
--- NOTE | 2017-08-14 10:59 | PDOC H&P ---
General Chief Complaint: The patient presents with difficulty in dialysis. Increased pressures are noted also difficulty with cannulation according to the dialysis report. - Current Medications/Allergies Home Medications: Acetaminophen [Tylenol 325 mg Tablet] 650 mg PO Q6HP PRN 04/10/17 Atorvastatin Calcium [Lipitor 80 mg Tablet] 80 mg PO QHS 04/10/17 Calcium Carbonate 750 Mg [Tums E-X 750 Mg] 3,000 mg PO MEALS PRN 04/10/17 Calcium Carbonate 750 Mg [Tums E-X 750mg] 1,500 mg PO BID 04/10/17 Cyclobenzaprine HCl [Flexeril 5 mg Tablet] 5 mg PO Q12 PRN 04/10/17 Midodrine HCl [Proamatine 5 mg Tablet] 5 mg PO ASDIR PRN 04/10/17 Nitroglycerin [Nitrostat 0.4 mg (1/150 Gr) Tabs 25/Bottle] 1 tab SL Q5MP PRN Trazodone HCl [Desyrel] 100 mg PO QHS 04/10/17 Cyanocobalamin (Vitamin B-12) [Vitamin B12] 1,000 mcg PO DAILY 05/02/17 Levetiracetam [Keppra 500 mg Tablet] 1,000 mg PO .T,TH,S,DEVRIES 05/02/17 Levetiracetam [Keppra 500 mg Tablet] 500 mg PO .M,W,F 05/02/17 Ranitidine HCl [Zantac 150 mg Tablet] 150 mg PO BID 05/02/17 Allergies/Adverse Reactions: cyclosporine Allergy (Verified 08/14/17 10:48) Penicillins Allergy (Verified 08/14/17 10:48) Past Medical History Cardiac Medical History: Reports: Coronary Artery Disease, Myocardial Infarction - ?, Hypertension - MEDICATED, Peripheral Vascular Disease Pulmonary Medical History: Reports: Chronic Obstructive Pulmonary Disease (COPD ) - ALBUTEROL Denies: Asthma - ?, Bronchitis - ?, Pneumonia Neurological Medical History: Reports: Seizures - March,X5 NEW ISSUE Endocrine Medical History: Denies: Diabetes Mellitus Type 1 Renal/ Medical History: Reports: End Stage Renal Disease Musculoskeltal Medical History: Denies: Arthritis Psychiatric Medical History: Reports: Depression Hematology: Reports: Anemia - DIALYSIS Past Surgical History Past Surgical History: Reports: Orthopedic Surgery - orthoscopic surg lt knee x2 , Vascular Surgery - AV fistula left forearm, Other - carotid artery stents bilat Family History Family History: Reviewed & Not Pertinent Parental Family History Reviewed: No Children Family History Reviewed: No Sibling(s) Family History Reviewed.: No Social History Smoking Status: Unknown if Ever Smoked Frequency of Alcohol Use: None Hx Recreational Drug Use: No Drugs: None Hx Prescription Drug Abuse: No Physical Exam Vital Signs: Temp Pulse Resp BP Pulse Ox 97.5 F 72 16 119/78 97 08/14/17 10:00 08/14/17 10:00 08/14/17 10:00 08/14/17 10:00 08/14/17 10:00 Intake & Output 08/13/17 08/14/17 08/15/17 06:59 06:59 06:59 Intake Total 0 Balance 0 Weight 103.5 kg Additional comments: Constitutional: Well-developed well-nourished -Burmese gentleman. No apparent acute distress. Eyes: Mucous membranes pink and moist, pupils equal and reactive to light. Conjunctiva normal. Cornea normal. ENT: Hearing grossly normal. External pinna normal to inspection. Teeth missing. Tongue normal to inspection. Cardiac: Heart sounds 1 and 2 normal, no murmurs. Respiratory breath sounds are present bilaterally, normal. Normal respiratory effort. Psychiatric: Judgment, memory, insight seem normal. Mood is pleasant and appropriate. Extremities: Upper extremities show normal range of movement. Pulses present noted to the radial arteries. Capillary refill normal. No cyanosis noted. No muscle wasting noted. Large left arm brachiocephalic fistula. Nice thrill. Not unduly forearm. Impression/Plan Plan: The plan is to do an angiogram on this fistula. Most likely this is an outflow problem based on the access report. Proximal angioplasties anticipated.
[2017-08-14 11:07] LABS: ANION GAP 19 (5-19); POTASSIUM 4.4 mmol/L (3.6-5.0); SODIUM 144.8 mmol/L (137-145)
[2017-08-14] MEDS ORDERED: PROPOFOL INJ 200 MG/20 ML VIAL IV ONE ×2 (11:10→12:21)
[2017-08-14] MEDS ORDERED: FENTANYL CITRATE INJ/PF 100 MCG/2 ML AMPUL ONE ×2 (11:10→12:21)
[2017-08-14] MEDS ORDERED: MIDAZOLAM 2 MG/2 ML INJ ONE ×2 (11:10→12:21)
[2017-08-14] MEDS ORDERED: LIDOCAINE 2% INJ-PF (20 MG/ML) 10 ML AMPUL ONE (11:15)
[2017-08-14] MEDS ORDERED: ONDANSETRON HCL INJ/PF 4 MG/2 ML SDV IV PRN (12:11)
[2017-08-14] MEDS ORDERED: MEPERIDINE HCL/PF INJ 25 MG/1 ML DISP.SYRIN IV PRN (12:11)
[2017-08-14] MEDS ORDERED: DIPHENHYDRAMINE HCL 50 MG/ML VIAL IV PRN (12:11)
[2017-08-14] MEDS ORDERED: OXYCODONE-ACETAMINOPHEN 5-325 MG TABLET PO PRN (12:11)
[2017-08-14] MEDS ORDERED: PROMETHAZINE HCL INJ 25 MG/1 ML VIAL IV PRN ×2 (12:11)
[2017-08-14] MEDS ORDERED: FENTANYL CITRATE INJ/PF 100 MCG/2 ML AMPUL IV PRN ×3 (12:11)
[2017-08-14] MEDS ORDERED: KETAMINE HCL INJ 500 MG/10 ML VIAL ONE (12:20)
[2017-08-14] MEDS ORDERED: HEPARIN SOD (PORCINE) 1,000 UNIT/ML 10 ML VIAL ONE (12:31)
--- NOTE | 2017-08-14 13:05 | PDOC DISCHARGE SUMMARY ---
Discharge Summary (SDC) - Discharge Final Diagnosis: #1 malfunctioning arteriovenous fistula, left brachiocephalic. 2. End-stage renal disease on hemodialysis. 3. Seizure disorder. 4. Hypertension. Date of Surgery: 08/14/17 Discharge Date: 08/14/17 Condition: Fair Treatment or Instructions: Discharge home [after recovery per ASU criteria]. Diet , [renal],as tolerated, when fully awake advance as tolerated. Activities within moderation encouraged. Follow up in my office by appointment in about 1 month call for appointment. Leave wounds [covered], [keep clean and dry, until hemodialysis]. Meds per med rec. May shower [in 48 hrs], [try to keep operated area as dry as possible]. Referrals: STEVAN ENG, SOFTWARE INTEGRATOR [Primary Care Provider] - Discharge Diet: Other (Comments) - Renal Respiratory Treatments at Home: Deep Breathing/Coughing Discharge Activity: Activity As Tolerated Report the Following to Your Physician Immediately: Shortness of Breath, Unusual Bleeding
--- NOTE | 2017-08-14 13:11 | Operative Report ---
Operative Report DATE OF SURGERY: 08/14/17 PREOPERATIVE DIAGNOSIS: #1 malfunctioning arteriovenous fistula, left brachiocephalic. 2. End-stage renal disease on hemodialysis. 3. Seizure disorder. 4. Hypertension. POSTOPERATIVE DIAGNOSIS: #1 malfunctioning arteriovenous fistula, left brachiocephalic. Post angioplasty. 2. End-stage renal disease on hemodialysis. 3. Seizure disorder. 4. Hypertension. OPERATION: 1. Needle access and arteriovenous fistula. 2. Angioplasty centrally at subclavian cephalic junction. 3. Angioplasty peripherally at about 18 cm from the anastomosis. 4. Angiogram and interpretation. SURGEON: [employer] EQUIPMENT OPERATOR: None ANESTHESIA: LMAC TISSUE REMOVED OR ALTERED: Not applicable. COMPLICATIONS: None ESTIMATED BLOOD LOSS: 2 mL. INTRAOPERATIVE FINDINGS: Of a well founded left brachiocephalic fistula. Actually omega fistula measuring about 2-1/2 cm in the first 6 cm. Very tortuous and 18 cm in a stenosis inferred rather than seen by the presence of a waist which is quite easily eliminated up to 8 mm. Good post dilatation appearance. Also an area of stenosis at the subclavian cephalic junction. Again not well seen however infrared by the presence of a lesion of collaterals which diminished markedly after dilatation. Also the presence of a waist which was eliminated. Angioplasty was done throughout with an 8 mm balloon. Inflating with a 3 mils syringe. PROCEDURE: PROCEDURE: After verifying the procedure and having obtained informed consent, the patient's left arm was prepared with Chlorhexidine and draped out with sterile linen. Local anesthesia infiltrated. Percutaneous access into the fistula ,[ antegrade], obtained about [4 cm] from the arteriovenous anastomosis using a micro puncture needle followed by micro puncture wire and then a micro puncture catheter. Angiogram demonstrated the aforementioned findings. Angioplasty was elected. A 0.035 [place] wire was inserted, and over this, a 7 [place]e short introducer was placed, this was followed by a 8-mm] angioplasty balloon . Angioplasty was done at the subclavian with a demonstration of a waist which is quite easily eliminated. Completion angiogram done and the balloon withdrawn at 18 cm. Inflation done using 3 mils syringe.. Inflating for 2 minutes. Completion angiogram demonstrated [satisfactory result]. The instrumentation was now withdrawn over hand-held pressure for 10 minutes. Dressings applied, procedure concluded. Exposure time: 2.9 minutes. Radiation: 29.9 mg/cm. Contrast: 80 mils of Isovue-300, low osmolality, dilute 50-50. DICTATING PHYSICIAN: YAO COLVIN M.D. cc: YAO COLVIN M.D. ([id number]) >>
--- NOTE | 2017-08-14 15:30 | RADIOLOGY REPORT (SQ) ---
EXAM DESCRIPTION: HUMERUS LEFT; NOT FOR OR FLUORO TO 1 HR COMPLETED DATE/TIME: 08/14/2017 3:22 pm REASON FOR STUDY: ANGIOPLASTY T82.858A STENOSIS OF OTHER VASCULAR PROSTH DEV/GRFT, INIT COMPARISON: None. FLUOROSCOPY TIME: 3.9 minutes 20 series of images saved to PACS. TECHNIQUE: Intra-operative images acquired during surgical procedure to evaluate progress. NUMBER OF IMAGES: Cine fluoroscopic images. LIMITATIONS: None. FINDINGS: Imaging in fluoroscopy during left upper extremity dialysis access evaluation and plasty b y Dr. Mittal . Please refer to the operative report for further details. IMPRESSION: INTRA PROCEDURAL IMAGING ABOVE . COMMENT: Quality ID [id number]: Final reports for procedures using fluoroscopy that document radiation exp osure indices, or exposure time and number of fluorographic images (if radiation exposure indices are not available) Please consult full operative report of the attending physician for description of the procedure. TECHNICAL DOCUMENTATION: JOB ID: [id number] [employer]- All Rights Reserved
[2017-08-14 15:32] VITALS: BP 126/83
== END 2017-08-14 14:50 | disposition home or self-care (01) ==
LOC: OROUT 09:58
PROVIDERS: ATTEND Surgery
PROC: 057F3DZ Dilation of Left Cephalic Vein with Intraluminal Device, Percutaneous Approach (ICD-10-PCS; principal; 2017-08-14 12:00)
DX: T82.858A Stenosis of other vascular prosthetic devices, implants and grafts, initial encounter (principal); Y83.2 Surgical operation with anastomosis, bypass or graft as the cause of abnormal reaction of the patient, or of later complication, without mention of misadventure at the time of the procedure; I12.0 Hypertensive chronic kidney disease with stage 5 chronic kidney disease or end stage renal disease; N18.6 End stage renal disease; Z99.2 Dependence on renal dialysis; I25.10 Atherosclerotic heart disease of native coronary artery without angina pectoris; I73.9 Peripheral vascular disease, unspecified; G40.909 Epilepsy, unspecified, not intractable, without status epilepticus; D63.1 Anemia in chronic kidney disease; G47.30 Sleep apnea, unspecified; J44.9 Chronic obstructive pulmonary disease, unspecified; I25.2 Old myocardial infarction; Z79.899 Other long term (current) drug therapy; Z88.0 Allergy status to penicillin; Z79.51 Long term (current) use of inhaled steroids; Z86.73 Personal history of transient ischemic attack (TIA), and cerebral infarction without residual deficits
CPT/HCPCS: 36415; 85027; 80048; 73060; 76000; C1725; C1769; C1752; C1887; C1894; Q9967; J2250; J3010; J1644 ×2; J3490 ×2; J2704; J1642; 01844

== ENCOUNTER 2018-02-09 12:59 | Emergency (ER) | payer MEDICARE, MEDICAID ==
[2018-02-09 13:41] LABS: ABSOLUTE BASOPHILS # (AUTO) 0.1 10^3/uL (0.0-0.2); ABSOLUTE EOSINOPHILS # (AUTO) 0.2 10^3/uL (0.0-0.6); ABSOLUTE LYMPHOCYTES (AUTO) 1.4 10^3/uL (0.5-4.7); ABSOLUTE MONOCYTES (AUTO) 0.5 10^3/uL (0.1-1.4); ABSOLUTE NEUT (AUTO) 4.6 10^3/uL (1.7-8.2); BASOPHILS % (AUTO) 0.8 % (0-2); EOSINOPHILS % (AUTO) 3.6 % (0-6); HEMATOCRIT 36.5 % (37.9-51.0); HEMOGLOBIN 12.3 g/dL (13.5-17.0); LYMPHOCYTES % (AUTO) 20.4 % (13-45); MEAN CORPUSCULAR HEMOGLOBIN 34.5 pg (27.0-33.4); MEAN CORPUSCULAR HGB CONC 33.8 g/dL (32.0-36.0); MEAN CORPUSCULAR VOLUME 102 fl (80-97); MONOCYTES % (AUTO) 7.7 % (3-13); PLATELET COUNT 204 10^3/uL (150-450); RED BLOOD COUNT 3.57 10^6/uL (4.35-5.55); RED CELL DISTRIBUTION WIDTH 14.7 % (11.5-14.0); SEGMENTED NEUTROPHILS % (AUTO) 67.5 % (42-78); TOTAL CELLS COUNTED % (AUTO) 100 %; WHITE BLOOD COUNT 6.8 10^3/uL (4.0-10.5)
--- NOTE | 2018-02-09 13:52 | RADIOLOGY REPORT (SQ) ---
EXAM DESCRIPTION: CHEST SINGLE VIEW COMPLETED DATE/TIME: 02/09/2018 1:42 pm REASON FOR STUDY: chest pain COMPARISON: 04/21/2017 EXAM PARAMETERS: NUMBER OF VIEWS: One view. TECHNIQUE: Single frontal radiographic view of the chest acquired. RADIATION DOSE: NA LIMITATIONS: None. FINDINGS: LUNGS AND PLEURA: No opacities, masses or pneumothorax. No pleural effusion. MEDIASTINUM AND HILAR STRUCTURES: No masses. Contour normal. HEART AND VASCULAR STRUCTURES: Heart normal in size. Normal vasculature. BONES: No acute findings. HARDWARE: None in the chest. OTHER: No other significant finding. IMPRESSION: NO ACUTE RADIOGRAPHIC FINDING IN THE CHEST. TECHNICAL DOCUMENTATION: JOB ID: [id number] [employer]- All Rights Reserved Reading location - IP/workstation name: [email or web address]
[2018-02-09 14:02] LABS: ALANINE AMINOTRANSFERASE 23 U/L (21-72); ALBUMIN 4.2 g/dL (3.5-5.0); ALKALINE PHOSPHATASE 40 U/L (38-126); ASPARTATE AMINO TRANSFERASE 10 U/L (17-59); BILIRUBIN,DIRECT 0.6 mg/dL (0.0-0.4); BILIRUBIN,TOTAL 0.6 mg/dL (0.2-1.3); BLOOD UREA NITROGEN 59 mg/dL (7-20); CALCIUM 8.4 mg/dL (8.4-10.2); CREATINE KINASE 228 U/L (55-170); GLUCOSE 84 mg/dL (75-110); POTASSIUM 5.9 mmol/L (3.6-5.0); TOTAL PROTEIN 6.7 g/dL (6.3-8.2)
[2018-02-09 14:09] LABS: CARBON DIOXIDE 23 mmol/L (22-30); CHLORIDE 100 mmol/L (98-107); SODIUM 148.1 mmol/L (137-145)
[2018-02-09 14:11] LABS: ANION GAP 25 (5-19)
[2018-02-09 14:14] LABS: CREATINE KINASE MB 1.15 ng/mL (<4.55)
--- NOTE | 2018-02-09 14:17 | ER Document Report ---
ED Cardiac <MAGDALENO MASON - Last Filed: 02/09/18 15:15> - General Mode of Arrival: Ambulatory Information source: Patient TRAVEL OUTSIDE OF THE [place] IN LAST 30 DAYS: No <MARINALIVDEBORAH - Last Filed: 02/09/18 16:00> - General Chief Complaint: Chest Pain Stated Complaint: CHEST PAIN Time Seen by Provider: 02/09/18 14:00 Notes: 57 y.o male with a PMHx of 3 strokes, Afib and end stage renal failure. Pt presents to the ED with chest pain and numbness to his RUE. Pt states that when he woke up this morning he felt as if his "chest was swollen" in his sternal area. Pt states that his pain is reproducible to pressure on his chest. He reports that he was living at living and moved out about 2 weeks ago and has since been living in hotels and motels. Pt reports that he skipped his dialysis yesterday due to changing hotels. He denies moving or lifting anything heavy. (DEBORAH GRAY) - Related Data Allergies/Adverse Reactions: cyclosporine Allergy (Verified 02/09/18 13:08) Penicillins Allergy (Verified 02/09/18 13:08) Past Medical History - General Information source: Patient - Social History Smoking Status: Current Every Day Smoker - 4-5 cigarettes a day Cigarette use (# per day): Yes - 4-5 Chew tobacco use (# tins/day): No Smoking Education Provided: Yes Frequency of alcohol use: Rare Drug Abuse: None Family History: Reviewed & Not Pertinent Patient has suicidal ideation: No Patient has homicidal ideation: No - Past Medical History Cardiac Medical History: Reports: Hx Coronary Artery Disease, Hx Heart Attack - ?, Hx Hypertension - MEDICATED, Hx Peripheral Vascular Disease Pulmonary Medical History: Reports: Hx COPD - ALBUTEROL Comment Only: Hx Asthma - ?, Hx Bronchitis - ? Neurological Medical History: Reports: Hx Cerebrovascular Accident - X3,LAST OVER 1 YR,BRAIN ANUERYSM 03/2016, Hx Seizures - March,X5 NEW ISSUE Renal/ Medical History: Reports: Hx End Stage Renal Disease. Denies: Hx Peritoneal Dialysis Psychiatric Medical History: Reports: Hx Depression Past Surgical History: Reports: Hx Orthopedic Surgery - orthoscopic surg lt knee x2, Hx Vascular Surgery - AV fistula left forearm, Other - carotid artery stents bilat - Immunizations Hx Diphtheria, Pertussis, Tetanus Vaccination: Yes Hx Pneumococcal Vaccination: 07/23/16 <DEBORAH GRAY - Last Filed: 02/09/18 16:00> Review of Systems - Review of Systems Constitutional: No symptoms reported EENT: No symptoms reported Cardiovascular: See HPI, Chest pain Respiratory: No symptoms reported Gastrointestinal: No symptoms reported Genitourinary: No symptoms reported Male Genitourinary: No symptoms reported Musculoskeletal: No symptoms reported Skin: No symptoms reported Hematologic/Lymphatic: No symptoms reported Neurological/Psychological: See HPI, Numbness - RUE numbness -: Yes All other systems reviewed and negative <DEBORAH GRAY - Last Filed: 02/09/18 16:00> Physical Exam <MAGDALENO MASON - Last Filed: 02/09/18 15:15> <DEBORAH GRAY - Last Filed: 02/09/18 16:00> - Vital signs Vitals: Pulse Ox 97 02/09/18 13:08 - Notes Notes: General: Alert, appears well. HEENT: Normocephalic. Atraumatic. PERRL. Extraocular movements intact. Oropharynx clear. Neck: Supple. Non-tender. Respiratory: No respiratory distress. Clear and equal breath sounds bilaterally. Cardiovascular: Regular rate and rhythm. Tenderness to palpation to sternal and left parasternal area. Abdominal: Morbidly obese. Soft, non-tender. No distension. Normal Bowel Sounds. Back: Non-tender. No deformity or step off. Extremities: Moves all four extremities. Upper extremities: RUE unremarkable. LUE with shunt in upper arm. Normal ROM to both extremities. Lower extremities: Normal inspection. No edema. Normal ROM. Neurological: Normal cognition. AAOx4. Normal speech. Psychological: Normal affect. Normal Mood. Skin: Warm. Dry. Skin to the feet is thickened and cracking. (DEBORAH GRAY) Course - Laboratory Result Diagrams: 02/09/18 13:21 02/09/18 13:21 - Diagnostic Test Radiology reviewed: Image reviewed, Reports reviewed - Chest x-ray is unremarkable - EKG Interpretation by Fl EKG shows normal: Sinus rhythm, [place], QRS Complexes, ST-T Waves. abnormal: Intervals - Borderline prolonged QT interval Rate: Normal - 73 Rhythm: NSR <MAGDALENO MASON - Last Filed: 02/09/18 15:15> - Laboratory Result Diagrams: 02/09/18 13:21 02/09/18 13:21 <DEBORAH GRAY - Last Filed: 02/09/18 16:00> - Vital Signs Vital signs: Temp Pulse Resp BP Pulse Ox 97 02/09/18 13:08 - Laboratory Laboratory results interpreted by me: 02/09/18 02/09/18 13:21 13:21 RBC 3.57 L Hgb 12.3 L Hct 36.5 L MCV 102 H MCH 34.5 H RDW 14.7 H Sodium 148.1 H Potassium 5.9 H Anion Gap 25 H BUN 59 H Creatinine 15.19 H Est GFR ( Amer) 4 L Est GFR (Non-Af Amer) 3 L Direct Bilirubin 0.6 H AST 10 L Creatine Kinase 228 H Discharge <MAGDALENO MASON - Last Filed: 02/09/18 15:15> <DEBORAH GRAY - Last Filed: 02/09/18 16:00> - Discharge Clinical Impression: Chest wall pain, Chronic renal failure, stage 5, ESRD (end stage renal disease) Hypertension Qualifiers: Hypertension type: essential hypertension Qualified Code(s): I10 - Essential ( primary) hypertension Condition: Stable Disposition: HOME, SELF-CARE Additional Instructions: Chest Wall Pain Your chest pain has been diagnosed as coming from the chest wall. This is often caused by straining the muscles or joints in the chest during physical activity, direct trauma, coughing, or vigorous vomiting. Persons with arthritis are especially prone to this type of pain, due to inflammation of the cartilage joints near the breast bone. Occasionally, no cause can be found. Rest from strenuous physical activity. This kind of chest pain is usually made worse by movement of the chest. Depending on the symptoms, we may prescribe medicine for pain, muscle relaxation, and antiinflammatory effects. If the pain is new, and seems to be due to muscle strain, cold packs can help. Otherwise, apply gentle warmth to the painful area for 15 minutes every hour or two. You should contact the doctor immediately if things change. Further evaluation is needed if you develop a fever or cough, if the nature of the pain changes, or if you become short of breath. Your chest pain today does not seem to be due to your heart. Your cardiac enzymes were normal. Your chest x-ray did not show any ischemic changes. Your exam suggests that the pain is coming from the chest wall. Be sure to go to dialysis tomorrow. Follow-up with your doctor as needed. RETURN TO THE EMERGENCY ROOM IF ANY NEW OR WORSENING SYMPTOMS. Referrals: STEVAN ENG, SIGNALS OFFICER [Primary Care Provider] - Follow up as needed Scribe Attestation: 02/09/18 15:19 I personally performed the services described in the documentation, reviewed and edited the documentation which was dictated to the scribe in my presence, and it accurately records my words and actions. (MAGDALENO MASON) Scribe Documentation - Scribe Written by Saqib:: Saqib Henley 02/09/2018 1550 acting as scribe for :: Edward <DEBORAH GRAY - Last Filed: 02/09/18 16:00>
[2018-02-09 14:18] LABS: TROPONIN I < 0.012 ng/mL
[2018-02-09 15:58] VITALS: BP 126/77
--- NOTE | 2018-02-09 21:22 | EKG REPORT ---
SEVERITY:- BORDERLINE ECG - SINUS RHYTHM BORDERLINE PROLONGED QT INTERVAL CAN NOT R/O INF MD OLD : Confirmed by: Jennifer Harvey 09-Feb-2018 21:21:59
== END 2018-02-09 16:30 | disposition home or self-care (01) ==
LOC: ER 12:59
DX: I12.0 Hypertensive chronic kidney disease with stage 5 chronic kidney disease or end stage renal disease (principal); R07.9 Chest pain, unspecified; R20.0 Anesthesia of skin; F17.210 Nicotine dependence, cigarettes, uncomplicated; N18.6 End stage renal disease; Z99.2 Dependence on renal dialysis; I48.91 Unspecified atrial fibrillation; Z88.0 Allergy status to penicillin; I25.2 Old myocardial infarction
CPT/HCPCS: 36415; 71045; 80053; 82550; 82553; 84484; 85025; 93005; 93010; 99285

== ENCOUNTER 2018-02-24 16:00 | Emergency (ER) | payer MEDICARE, MEDICAID ==
[2018-02-24 17:11] LABS: ALANINE AMINOTRANSFERASE 25 U/L (21-72); ALKALINE PHOSPHATASE 55 U/L (38-126); ANION GAP 19 (5-19); ASPARTATE AMINO TRANSFERASE 12 U/L (17-59); BILIRUBIN,DIRECT 0.5 mg/dL (0.0-0.4); BILIRUBIN,TOTAL 0.5 mg/dL (0.2-1.3); BLOOD UREA NITROGEN 21 mg/dL (7-20); CARBON DIOXIDE 30 mmol/L (22-30); CHLORIDE 96 mmol/L (98-107); CREATINE KINASE 125 U/L (55-170); GLUCOSE 81 mg/dL (75-110); POTASSIUM 3.7 mmol/L (3.6-5.0); SODIUM 145.3 mmol/L (137-145); TOTAL PROTEIN 8.3 g/dL (6.3-8.2)
[2018-02-24 17:12] LABS: ABSOLUTE BASOPHILS # (AUTO) 0.1 10^3/uL (0.0-0.2); ABSOLUTE EOSINOPHILS # (AUTO) 0.2 10^3/uL (0.0-0.6); ABSOLUTE LYMPHOCYTES (AUTO) 2.1 10^3/uL (0.5-4.7); ABSOLUTE NEUT (AUTO) 5.4 10^3/uL (1.7-8.2); BASOPHILS % (AUTO) 1.1 % (0-2); EOSINOPHILS % (AUTO) 2.4 % (0-6); HEMATOCRIT 42.5 % (37.9-51.0); HEMOGLOBIN 14.7 g/dL (13.5-17.0); LYMPHOCYTES % (AUTO) 23.7 % (13-45); MEAN CORPUSCULAR HEMOGLOBIN 34.6 pg (27.0-33.4); MEAN CORPUSCULAR HGB CONC 34.6 g/dL (32.0-36.0); MEAN CORPUSCULAR VOLUME 100 fl (80-97); MONOCYTES % (AUTO) 11.1 % (3-13); PLATELET COUNT 248 10^3/uL (150-450); RED BLOOD COUNT 4.25 10^6/uL (4.35-5.55); RED CELL DISTRIBUTION WIDTH 14.4 % (11.5-14.0); SEGMENTED NEUTROPHILS % (AUTO) 61.7 % (42-78); TOTAL CELLS COUNTED % (AUTO) 100 %; WHITE BLOOD COUNT 8.7 10^3/uL (4.0-10.5)
[2018-02-24 17:23] LABS: CREATINE KINASE MB 0.91 ng/mL (<4.55)
[2018-02-24 17:24] LABS: TROPONIN I < 0.012 ng/mL
--- NOTE | 2018-02-24 17:44 | ER Document Report ---
ED General - General Chief Complaint: Dizziness Stated Complaint: DIZZINESS Time Seen by Provider: 02/24/18 17:12 Mode of Arrival: Medic Information source: Patient, PENDING SALE TO [facility] Records Notes: 57-year-old male with a history of hypertension, end-stage renal disease presents with complaint of dizziness. Patient states that he was in his third hour of dialysis when he began experiencing severe abdominal cramping and became lightheaded. Patient states this lasted for approximately 30 minutes and then self resolved. Upon my exam patient is pain-free, no longer dizzy, and eating a bag full of candy. Denies any recent illnesses. He denies headache, visual changes, weakness, chest pain, shortness of breath. Patient undergoes dialysis Monday. TRAVEL OUTSIDE OF THE [place] IN LAST 30 DAYS: No - HPI Onset: Just prior to arrival Onset/Duration: Sudden, Gone Quality of pain: Cramping Severity: Moderate Associated symptoms: Other - Lightheaded. denies: Shortness of breath, Sweating , Weakness Exacerbated by: Denies Relieved by: Denies Similar symptoms previously: No Recently seen / treated by doctor: Yes - Related Data Allergies/Adverse Reactions: cyclosporine Allergy (Verified 02/24/18 16:57) Penicillins Allergy (Verified 02/24/18 16:57) Past Medical History - General Information source: Patient, PENDING SALE TO [facility] Records - Social History Smoking Status: Current Every Day Smoker Frequency of alcohol use: None Drug Abuse: None Lives with: Spouse/Significant other Family History: Reviewed & Not Pertinent Patient has suicidal ideation: No Patient has homicidal ideation: No - Past Medical History Cardiac Medical History: Reports: Hx Coronary Artery Disease, Hx Heart Attack - ?, Hx Hypertension - MEDICATED, Hx Peripheral Vascular Disease Pulmonary Medical History: Reports: Hx COPD - ALBUTEROL Denies: Hx Pneumonia Comment Only: Hx Asthma - ?, Hx Bronchitis - ? Neurological Medical History: Reports: Hx Cerebrovascular Accident - X3,LAST OVER 1 YR,BRAIN ANUERYSM 03/2016, Hx Seizures - March,X5 NEW ISSUE Endocrine Medical History: Denies: Hx Diabetes Mellitus Type 1 Renal/ Medical History: Reports: Hx End Stage Renal Disease. Denies: Hx Peritoneal Dialysis Musculoskeltal Medical History: Denies Hx Arthritis Psychiatric Medical History: Reports: Hx Depression Past Surgical History: Reports: Hx Orthopedic Surgery - orthoscopic surg lt knee x2, Hx Vascular Surgery - AV fistula left forearm, Other - carotid artery stents bilat - Immunizations Hx Diphtheria, Pertussis, Tetanus Vaccination: Yes Hx Pneumococcal Vaccination: 07/23/16 Review of Systems - Review of Systems Notes: Patient denies fever, chills, nausea, vomiting, headache, ear pain, sore throat , cough, chest pain, shortness of breath, abdominal pain, back pain, dysuria, hematuria, rash, SI/HI. Physical Exam - Vital signs Vitals: Temp BP 97.9 F 130/93 H 02/24/18 16:05 02/24/18 16:05 - Notes Notes: PHYSICAL EXAMINATION: GENERAL: Well-appearing, well-nourished and in no acute distress. HEAD: Atraumatic, normocephalic. EYES: Pupils equal round and reactive to light, extraocular movements intact, sclera anicteric, conjunctiva are normal. ENT: Nares patent, oropharynx clear without exudates. Moist mucous membranes. NECK: Normal range of motion, supple without lymphadenopathy LUNGS: Breath sounds clear to auscultation bilaterally and equal. No wheezes rales or rhonchi. HEART: Regular rate and rhythm without murmurs ABDOMEN: Soft, nontender, nondistended abdomen. No guarding, no rebound. No masses appreciated. Musculoskeletal: Normal range of motion, no pitting or edema. No cyanosis. NEUROLOGICAL: Cranial nerves grossly intact. Normal speech, normal gait. Normal sensory, motor exams PSYCH: Normal mood, normal affect. SKIN: Warm, Dry, normal turgor, no rashes or lesions noted. Course - Re-evaluation Re-evalutation: Laboratory 02/24/18 02/24/18 02/24/18 16:05 16:05 16:05 WBC 8.7 RBC 4.25 L Hgb 14.7 Hct 42.5 MCV 100 H MCH 34.6 H MCHC 34.6 RDW 14.4 H Plt Count 248 Seg Neutrophils % 61.7 Lymphocytes % 23.7 Monocytes % 11.1 Eosinophils % 2.4 Basophils % 1.1 Absolute Neutrophils 5.4 Absolute Lymphocytes 2.1 Absolute Monocytes 1.0 Absolute Eosinophils 0.2 Absolute Basophils 0.1 Sodium 145.3 H Potassium 3.7 Chloride 96 L Carbon Dioxide 30 Anion Gap 19 BUN 21 H Creatinine 7.89 H Est GFR ( Amer) 9 L Est GFR (Non-Af Amer) 7 L Glucose 81 Calcium 10.0 Total Bilirubin 0.5 Direct Bilirubin 0.5 H Neonat Total Bilirubin Not Reportable Neonat Direct Bilirubin Not Reportable Neonat Indirect Bili Not Reportable AST 12 L ALT 25 Alkaline Phosphatase 55 Creatine Kinase 125 CK-MB (CK-2) 0.91 Troponin I < 0.012 Total Protein 8.3 H Albumin 5.0 57-year-old male with a history of hypertension, end-stage renal disease presents with complaint of dizziness. Patient states that he was in his third hour of dialysis when he began experiencing severe abdominal cramping and became lightheaded. Patient states this lasted for approximately 30 minutes and then self resolved. Upon my exam patient is pain-free, no longer dizzy, and eating a bag full of candy. 02/24/18 18:29 On reevaluation patient is requesting discharge home. He is able to ambulate without difficulty. He has not had a recurrence of his symptoms since presenting to the emergency department. 02/25/18 19:14 - Vital Signs Vital signs: Temp Pulse Resp BP Pulse Ox 98.1 F 20 152/91 H 97 02/24/18 18:47 02/24/18 18:47 02/24/18 18:48 02/24/18 18:48 - Laboratory Result Diagrams: 02/24/18 16:05 02/24/18 16:05 Laboratory results interpreted by me: 02/24/18 02/24/18 16:05 16:05 RBC 4.25 L MCV 100 H MCH 34.6 H RDW 14.4 H Sodium 145.3 H Chloride 96 L BUN 21 H Creatinine 7.89 H Est GFR ( Amer) 9 L Est GFR (Non-Af Amer) 7 L Direct Bilirubin 0.5 H AST 12 L Total Protein 8.3 H Discharge - Discharge Clinical Impression: Dizziness, Abdominal cramping, ESRD (end stage renal disease) Condition: Good Disposition: HOME, SELF-CARE Instructions: Dizziness (PENDING SALE TO [facility]) Referrals: STEVAN ENG, BUSINESS CENTER ATTENDANT [Primary Care Provider] - Follow up as needed
[2018-02-24 18:50] VITALS: BP 152/91
--- NOTE | 2018-02-24 20:18 | EKG REPORT ---
SEVERITY:- BORDERLINE ECG - SINUS RHYTHM BORDERLINE PROLONGED QT INTERVAL : Confirmed by: Jennifer Harvey 24-Feb-2018 20:16:34
== END 2018-02-24 18:50 | disposition home or self-care (01) ==
LOC: ER 16:00
DX: R42 Dizziness and giddiness (principal); R10.9 Unspecified abdominal pain; I12.0 Hypertensive chronic kidney disease with stage 5 chronic kidney disease or end stage renal disease; N18.6 End stage renal disease; Z99.2 Dependence on renal dialysis; F17.200 Nicotine dependence, unspecified, uncomplicated; I25.10 Atherosclerotic heart disease of native coronary artery without angina pectoris; I25.2 Old myocardial infarction; J44.9 Chronic obstructive pulmonary disease, unspecified
CPT/HCPCS: 36415; 80053; 82550; 82553; 84484; 85025; 93005; 93010; 99284

== ENCOUNTER 2018-07-23 07:27 | Day surgery (SDC) | payer MEDICARE, MEDICAID ==
[~2018-07-23 07:27] MED LIST changes: +DIAZEPAM 5 MG TABLET PO PRN; -LIDOCAINE 0.5% INJ-PF (5 MG/ML) 50 ML SDV ONE
[2018-07-23 08:24] LABS: MEAN CORPUSCULAR HEMOGLOBIN 32.9 pg (27.0-33.4); MEAN CORPUSCULAR VOLUME 97 fl (80-97); PLATELET COUNT 197 10^3/uL (150-450); RED BLOOD COUNT 4.25 10^6/uL (4.35-5.55); RED CELL DISTRIBUTION WIDTH 14.1 % (11.5-14.0); WHITE BLOOD COUNT 6.5 10^3/uL (4.0-10.5)
[2018-07-23] MEDS ORDERED: OXYCODONE-ACETAMINOPHEN 5-325 MG TABLET ONE (08:25)
[2018-07-23] MEDS ORDERED: DIAZEPAM 5 MG TABLET ONE (08:25)
[2018-07-23 08:43] LABS: ANION GAP 17 (5-19); BLOOD UREA NITROGEN 71 mg/dL (7-20); CALCIUM 9.1 mg/dL (8.4-10.2); CARBON DIOXIDE 27 mmol/L (22-30); CHLORIDE 94 mmol/L (98-107); GLUCOSE 91 mg/dL (75-110); POTASSIUM 4.9 mmol/L (3.6-5.0); SODIUM 138.3 mmol/L (137-145)
[2018-07-23] MEDS ORDERED: MIDAZOLAM 2 MG/2 ML INJ ONE (09:17)
[2018-07-23] MEDS ORDERED: LIDOCAINE 0.5% INJ-PF (5 MG/ML) 50 ML SDV ONE (09:17)
[2018-07-23] MEDS ORDERED: FENTANYL CITRATE INJ/PF 100 MCG/2 ML AMPUL ONE (09:18)
[2018-07-23] MEDS ORDERED: HEPARIN SOD (PORCINE) 5,000 UNIT/ML 1 ML SYRINGE ONE (09:18)
[2018-07-23 11:46] VITALS: BP 128/89
--- NOTE | 2018-07-23 12:50 | PDOC H&P ---
General Chief Complaint: This patient presents with pain around the shoulder area in the left arm AV fistula. Also issues on hemodialysis. Investigation by angiogram is recommended - Current Medications/Allergies Home Medications: Acetaminophen [Tylenol 325 mg Tablet] 650 mg PO Q6HP PRN 04/10/17 Atorvastatin Calcium [Lipitor 80 mg Tablet] 80 mg PO QHS 04/10/17 Nitroglycerin [Nitrostat 0.4 mg (1/150 Gr) Tabs 25/Bottle] 1 tab SL Q5MP PRN Trazodone HCl [Desyrel] 100 mg PO QHS 04/10/17 Cyanocobalamin (Vitamin B-12) [Vitamin B12] 1,000 mcg PO DAILY 05/02/17 Levetiracetam [Keppra 500 mg Tablet] 500 mg PO .M,W,F 05/02/17 Clonidine HCl [Clonidine HCl ER] 0.1 mg PO Q12 08/14/17 Calcium Acetate [Phoslo 667 mg Capsule] 1 tab PO DAILY 07/23/18 Allergies/Adverse Reactions: cyclosporine Allergy (Verified 02/24/18 16:57) Penicillins Allergy (Verified 02/24/18 16:57) Past Medical History Cardiac Medical History: Reports: Coronary Artery Disease, Hypertension - MEDICATED, Peripheral Vascular Disease Denies: Myocardial Infarction - ? Pulmonary Medical History: Reports: Chronic Obstructive Pulmonary Disease (COPD ) - ALBUTEROL Denies: Asthma - ?, Bronchitis - ?, Pneumonia Neurological Medical History: Reports: Seizures - March,X5 NEW ISSUE Endocrine Medical History: Denies: Diabetes Mellitus Type 1 Renal/ Medical History: Reports: End Stage Renal Disease Musculoskeltal Medical History: Denies: Arthritis Psychiatric Medical History: Reports: Depression Hematology: Denies: Anemia Past Surgical History Past Surgical History: Reports: Orthopedic Surgery - orthoscopic surg lt knee x2 , Vascular Surgery - AV fistula left forearm, Other - carotid artery stents bilat Family History Family History: Reviewed & Not Pertinent Parental Family History Reviewed: No Children Family History Reviewed: No Sibling(s) Family History Reviewed.: No Social History Smoking Status: Current Every Day Smoker Frequency of Alcohol Use: None Hx Recreational Drug Use: No Drugs: None Hx Prescription Drug Abuse: No Physical Exam Vital Signs: Temp Pulse Resp BP Pulse Ox 98.0 F 67 16 128/89 H 98 07/23/18 10:30 07/23/18 11:00 07/23/18 11:00 07/23/18 11:00 07/23/18 11:00 Intake & Output 07/22/18 07/23/18 07/24/18 06:59 06:59 06:59 Weight 102.058 kg Additional comments: Constitutional: Well-developed well-nourished gentleman. No apparent acute distress. Eyes: Mucous membranes pink and moist, pupils equal and reactive to light. Conjunctiva normal. Cornea normal. Cardiac: Heart sounds 1 and 2 normal. Respiratory breath sounds are present bilaterally, normal. Normal respiratory effort. Psychiatric: Judgment, memory, insight seem normal. Mood is pleasant and appropriate. Extremities: Upper extremities show normal range of movement. Pulses present noted to the radial arteries. Capillary refill normal. No cyanosis noted. No muscle wasting noted. Left arm AV fistula noted. Ectatic and even aneurysmal in segments. Impression/Plan Plan: This patient with malfunction suggested in fistula is well indicated for angiogram and possible improvement by angioplasty. The procedure, its risks, benefits, expected outcome and alternatives are familiar to the patient and he wishes to proceed.
--- NOTE | 2018-07-23 12:51 | Discharge Summary ---
Discharge Summary (SDC) - Discharge Final Diagnosis: #1 malfunctioning arteriovenous fistula, left brachiocephalic. 2. End-stage renal disease on hemodialysis. 3. History of seizure disorder. 4. COPD. Date of Surgery: 07/23/18 Discharge Date: 07/23/18 Forms: Sedation D/C Instructions, Discharge POC-Surgical Service Treatment or Instructions: Return to physician as directed. Referrals: YAO COLVIN MD [ACTIVE STAFF] - 08/01/18 2:45 pm Respiratory Treatments at Home: Deep Breathing/Coughing Discharge Activity: Activity As Tolerated Home Care Assistance: None Needed Report the Following to Your Physician Immediately: Shortness of Breath, Nausea , Vomiting, Increase in Pain, Fever over 101 Degrees, Unusual Bleeding, Redness , Swelling, Warmth, Numbness, Tingling Sensation
--- NOTE | 2018-07-23 12:55 | Operative Report ---
Operative Report DATE OF SURGERY: 07/23/18 PREOPERATIVE DIAGNOSIS: #1 malfunctioning arteriovenous fistula, left brachiocephalic. 2. End-stage renal disease on hemodialysis. 3. History of seizure disorder. 4. COPD. POSTOPERATIVE DIAGNOSIS: #1 malfunctioning arteriovenous fistula, left brachiocephalic. 2. End-stage renal disease on hemodialysis. 3. History of seizure disorder. 4. COPD. OPERATION: 1. Needle introduction into arteriovenous fistula, left brachiocephalic. 2. Angioplasty central. 3. Angiogram and interpretation. SURGEON: YAO WEATHERS SQL ENGINEER: None. ANESTHESIA: Moderate Sedation TISSUE REMOVED OR ALTERED: Not applicable. COMPLICATIONS: None. ESTIMATED BLOOD LOSS: 2 mL. INTRAOPERATIVE FINDINGS: Of a well founded left arm brachiocephalic fistula. Ectatic and even aneurysmal up to 2.5 cm in repeat places. Quite tortuous. Angiographic findings consisted of somewhat tortuous fistula with normal appearance except for the mid subclavian. This area has stenosis which is hard to quantify however there is a large amount of collateral formation. Also attempts at getting past this area with the Glidewire was challenging as it seemed to obstruct. All of these suggest that there is very significant stenosis in this area. This was corrected by insufflation with a 9 mm angioplasty balloon. PROCEDURE: PROCEDURE: After verifying the procedure and having obtained informed consent, the patient's left arm was prepared with Chlorhexidine and draped out with sterile linen. Local anesthesia infiltrated. Percutaneous access into the fistula ,[ antegrade], obtained about [4 cm] from the arteriovenous anastomosis using a micro puncture needle followed by micro puncture wire and then a micro puncture catheter. Angiogram demonstrated the aforementioned findings. Angioplasty was elected. A 0.035 [place] wire was inserted, and over this, a 7 Armenian short introducer was placed, this was followed by a [9 -mm ] angioplasty balloon . Angioplasty was Done at the culprit.. Inflating using a 3 mils syringe for up to 3 minutes at a time..]. Completion angiogram demonstrated [satisfactory result]. The instrumentation was now withdrawn over hand pressure for 10 minutes . Dressings applied, procedure concluded. T: DICTATING PHYSICIAN: YAO COLVIN M.D. cc: YAO COLVIN M.D. ([id number]) >>
--- NOTE | 2018-07-23 14:15 | RADIOLOGY REPORT (SQ) ---
EXAM DESCRIPTION: FISTULAGRAM W/PLASTY; ANGIOPLASTY BRACHIOCEPHALIC COMPLETED DATE/TIME: 07/23/2018 10:28 am REASON FOR STUDY: T82.858A T82.858A STENOSIS OF OTHER VASCULAR PROSTH DEV/GRFT, INIT COMPARISON: None. FLUOROSCOPY TIME: 2 minutes 38 images saved to PACS. TECHNIQUE: Intra-operative images acquired during surgical procedure to evaluate progress. NUMBER OF IMAGES: Cine fluoroscopic images. LIMITATIONS: None. FINDINGS: Selected images from venogram and angioplasty left subclavian vein. IMPRESSION: IMAGE(S) OBTAINED DURING PROCEDURE. COMMENT: Quality ID 145: Final reports for procedures using fluoroscopy that document radiation exp osure indices, or exposure time and number of fluorographic images (if radiation exposure indices are not available) Please consult full operative report of the attending physician for description of the procedure. TECHNICAL DOCUMENTATION: JOB ID: [id number] [employer]- All Rights Reserved Reading location - IP/workstation name: [email or web address]
--- NOTE | 2018-07-23 14:15 | RADIOLOGY REPORT (SQ) ---
EXAM DESCRIPTION: FISTULAGRAM W/PLASTY; ANGIOPLASTY BRACHIOCEPHALIC COMPLETED DATE/TIME: 07/23/2018 10:28 am REASON FOR STUDY: T82.858A T82.858A STENOSIS OF OTHER VASCULAR PROSTH DEV/GRFT, INIT COMPARISON: None. FLUOROSCOPY TIME: 2 minutes 38 images saved to PACS. TECHNIQUE: Intra-operative images acquired during surgical procedure to evaluate progress. NUMBER OF IMAGES: Cine fluoroscopic images. LIMITATIONS: None. FINDINGS: Selected images from venogram and angioplasty left subclavian vein. IMPRESSION: IMAGE(S) OBTAINED DURING PROCEDURE. COMMENT: Quality ID 145: Final reports for procedures using fluoroscopy that document radiation exp osure indices, or exposure time and number of fluorographic images (if radiation exposure indices are not available) Please consult full operative report of the attending physician for description of the procedure. TECHNICAL DOCUMENTATION: JOB ID: [id number] [employer]- All Rights Reserved Reading location - IP/workstation name: [email or web address]
== END 2018-07-23 11:10 | disposition home or self-care (01) ==
LOC: CCL 07:27
PROVIDERS: ATTEND Surgery
DX: T82.858A Stenosis of other vascular prosthetic devices, implants and grafts, initial encounter (principal); Y83.2 Surgical operation with anastomosis, bypass or graft as the cause of abnormal reaction of the patient, or of later complication, without mention of misadventure at the time of the procedure; I12.0 Hypertensive chronic kidney disease with stage 5 chronic kidney disease or end stage renal disease; N18.6 End stage renal disease; Z99.2 Dependence on renal dialysis; J44.9 Chronic obstructive pulmonary disease, unspecified; G40.909 Epilepsy, unspecified, not intractable, without status epilepticus; I25.10 Atherosclerotic heart disease of native coronary artery without angina pectoris; Z88.8 Allergy status to other drugs, medicaments and biological substances; Z88.0 Allergy status to penicillin; Z79.51 Long term (current) use of inhaled steroids
CPT/HCPCS: 36415; 85027; 80048; 36907; 36902; C1887; Q9967; C1769; J2250; J1644 ×2; A9270 ×2; J3010; J3490

== ENCOUNTER 2018-07-28 10:21 | Emergency (ER) | payer MEDICARE, MEDICAID ==
[2018-07-28] MEDS ORDERED: NORMAL SALINE 1000 ML 1,000 ML IV ONE (10:41)
[2018-07-28] MEDS ORDERED: LEVETIRACETAM 500 MG TABLET PO ONE (10:41)
[2018-07-28] MEDS ORDERED: ONDANSETRON HCL INJ/PF 4 MG/2 ML SDV IV ONE ×2 (10:43→10:59)
[2018-07-28] MEDS ORDERED: LEVETIRACETAM INJ/PF 500 MG/5 ML SDV IV ONE (10:43)
--- NOTE | 2018-07-28 10:47 | ER Document Report ---
ED General - General Stated Complaint: NAUSEA Time Seen by Provider: 07/28/18 10:32 TRAVEL OUTSIDE OF THE [place] IN LAST 30 DAYS: No - HPI Notes: Patient is a 58-year-old male with a history of hypertension, COPD, seizure disorder, end-stage renal disease (on dialysis Monday, , Monday) who presents to the ED for complaint of possible seizure prior to arrival. Patient states that he was sitting down waiting for his transport to go to his dialysis session when he started to get headache and not feel well. Patient states that he then laid down on his porch where he states that he started shaking and had a seizure. Patient states that he did lose consciousness and was located by a neighbor who called EMS. Patient was then back to normal upon arrival of EMS. Patient states that he does feel weak, but has no other pains. He stopped taking his Keppra about 1-2 weeks ago as it made him nauseated. He has otherwise been eating and drinking without any difficulties. He does not produce any urine which is normal for him. He is having normal bowel movements. Denies any headache, fever, head injury, neck pain, changes in vision/speech/mentation/hearing, URI, sore throat, chest pain, palpitations, cough, shortness of breath, wheeze, dyspnea, abdominal pain, nausea/vomiting/ diarrhea, urinary retention, dysuria, hematuria, back pain, loss of control of bowel or bladder, numbness/tingling, saddle anesthesia, muscle paralysis/ weakness, or rash. - Related Data Allergies/Adverse Reactions: cyclosporine Allergy (Verified 02/24/18 16:57) Penicillins Allergy (Verified 02/24/18 16:57) Past Medical History - Social History Smoking Status: Unknown if Ever Smoked Family History: Reviewed & Not Pertinent - Past Medical History Cardiac Medical History: Reports: Hx Coronary Artery Disease, Hx Hypertension - MEDICATED, Hx Peripheral Vascular Disease Denies: Hx Heart Attack - ? Pulmonary Medical History: Reports: Hx COPD - ALBUTEROL Denies: Hx Asthma - ?, Hx Bronchitis - ?, Hx Pneumonia Neurological Medical History: Reports: Hx Cerebrovascular Accident - X3,LAST OVER 1 YR,BRAIN ANUERYSM 03/2016, Hx Seizures - March,X5 NEW ISSUE Endocrine Medical History: Denies: Hx Diabetes Mellitus Type 1 Renal/ Medical History: Reports: Hx End Stage Renal Disease. Denies: Hx Peritoneal Dialysis Musculoskeletal Medical History: Denies Hx Arthritis Psychiatric Medical History: Reports: Hx Depression Past Surgical History: Reports: Hx Orthopedic Surgery - orthoscopic surg lt knee x2, Hx Vascular Surgery - AV fistula left forearm, Other - carotid artery stents bilat - Immunizations Hx Diphtheria, Pertussis, Tetanus Vaccination: Yes Hx Pneumococcal Vaccination: 07/23/16 Review of Systems - Review of Systems -: Yes All other systems reviewed and negative Physical Exam - Vital signs Vitals: Resp Pulse Ox 16 95 07/28/18 10:28 07/28/18 10:28 - Notes Notes: PHYSICAL EXAMINATION: GENERAL: Well-appearing, well-nourished and in no acute distress. A&Ox4. Answers questions appropriately. HEAD: Atraumatic, normocephalic. Non-tender. No méndez sign EYES: Pupils equal round and reactive to light, extraocular movements intact, sclera anicteric, conjunctiva are normal. No raccoon eyes/entrapment ENT: EAC clear b/l. TM's intact b/l without erythema, fluid, or perforation. Nares patent and without discharge. oropharynx clear without exudates. No tonsilar hypertrophy or erythema. Moist mucous membranes. No sinus tenderness. No hemotympanum/CSF discharge. NECK: Normal range of motion, supple without lymphadenopathy. No rigidity. No midline tenderness. Spurling negative. NEXUS negative. Chest: No flail chest. equal rise/fall. Non-tender LUNGS: Breath sounds clear to auscultation bilaterally and equal. No wheezes rales or rhonchi. HEART: Irregularly irregular without murmurs, rubs, gallops. ABDOMEN: Soft, nontender, nondistended abdomen. No guarding, no rebound. No masses appreciated. Normal bowel sounds present. No CVA tenderness bilaterally. Musculoskeletal: Ext's b/l: FROM to passive/active. Strength 5+/5. No deficits noted. No bony tenderness of extremities. Back: FROM to passive/active. Strength 5+/5. No vertebral point tenderness, stepoffs, or deformities. No other bony tenderness or ecchymosis. Extremities: No cyanosis, clubbing, or edema b/l. Peripheral pulses 2+. Capillary refill less than 2 seconds. NEUROLOGICAL: NIH 0. GCS 15. Cranial nerves grossly intact. Normal speech, normal gait. Normal sensory, motor exams. Reflexes 2+ b/l. NIK's negative. Pronator drift negative. Heel/andrade, finger/nose wnl. PSYCH: Normal mood, normal affect. SKIN: Warm, Dry, normal turgor, no rashes or lesions noted. Course - Re-evaluation Re-evalutation: 07/28/18 10:[address] Boss. We will obtain basic labs and EKG to further evaluate. No CT at this time. Fluids, keppra, and zofran ordered. 07/28/18 13:15 Pt sitting comfortably. Vitals acceptable. Pt eating chips currently. 07/28/18 16:10 Patient is an afebrile, well-hydrated, 58-year-old male who presents to the ED for evaluation status post seizure. Vitals are acceptable without any significant tachycardia, tachypnea, toxic, or hypotension. PE is otherwise unremarkable. NIH 0, GCS 15, cranial is grossly intact. Patient is nontoxic- appearing and is tolerating p.o. without any difficulties. He has not been altered throughout his stay. Patient did have a CO2 level of 9 upon initial evaluation with some mild changes from baseline to his CMP otherwise. I suspect this to be related to him having a seizure. I did review this case with Dr. Boss recommended a repeat BMP. Lab work was otherwise acceptable. Repeat BMP did show an improvement of CO2 level to 20 as well as a slight decrease in his potassium, electrolytes, and improvement in renal function even though patient is a dialysis patient. Venous blood gas was within normal limits. Patient does not meet requirement for urgent dialysis and he was told by [facility] that he can go Monday for his dialysis. Patient states that he is feeling much better and would like to go home at this time. He has not had any other seizures throughout his stay. No further labs or imaging warranted at this time. Low suspicion for any acute intracranial pathology, sepsis, meningitis, severe dehydration, respiratory compromise, or other systemic emergent condition at this time. Patient is aware that condition can change from initial presentation and he needs to monitor symptoms closely and seek medical attention with any acute changes. Patient is advised to continue taking his Keppra. Recheck with your PCM in 2-3 days. Return to the ED with any worsening/concerning symptoms otherwise as reviewed in discharge. Patient is in agreement. - Vital Signs Vital signs: Temp Pulse Resp BP Pulse Ox 17 131/95 H 96 07/28/18 16:01 07/28/18 16:00 07/28/18 16:01 - Laboratory Result Diagrams: 07/28/18 10:05 07/28/18 14:39 Laboratory results interpreted by me: 07/28/18 07/28/18 07/28/18 10:05 10:05 12:50 WBC 11.1 H MCV 101 H D RDW 14.6 H Sodium 136.1 L Potassium 5.3 H Chloride 90 L Carbon Dioxide 9 L* Anion Gap 37 H BUN 36 H Creatinine 13.77 H Est GFR ( Amer) 5 L Est GFR (Non-Af Amer) 4 L Glucose 144 H Lactic Acid 2.3 H Magnesium 3.2 H Direct Bilirubin 0.8 H AST 16 L ALT 15 L Total Protein 8.5 H Albumin 5.4 H 07/28/18 14:39 WBC MCV RDW Sodium 133.7 L Potassium Chloride 93 L Carbon Dioxide 20 L D Anion Gap 21 H BUN 41 H Creatinine 12.81 H Est GFR ( Amer) 5 L Est GFR (Non-Af Amer) 4 L Glucose Lactic Acid Magnesium Direct Bilirubin AST ALT Total Protein Albumin Discharge - Discharge Clinical Impression: Seizure disorder Condition: Stable Disposition: HOME, SELF-CARE Additional Instructions: Maintain adequate fluid and food intake Take home medications as directed Healthy diet Monitor blood pressure/glucose daily and keep a log Monitor symptoms for any acute changes Recheck with your PCM in 2-3 days Consider a follow-up with cardiology Return to the ED with any worsening symptoms and/or development of fever, headache, changes in behavior/mentation/vision/speech, chest pain, palpitations , syncope, shortness of breath, trouble breathing, abdominal pain, n/v/d, blood in stool/urine, loss of control of bowel/bladder, urinary retention, muscle weakness/paralysis, saddle anesthesia, numbness/tingling, recurrent seizure, or other worsening symptoms that are concerning to you. Forms: Elevated Blood Pressure Referrals: STEVAN ENG, LIFE ENRICHMENT ASSISTANT [Primary Care Provider] - 07/30/18
[2018-07-28 11:05] LABS: ABSOLUTE BASOPHILS # (AUTO) 0.1 10^3/uL (0.0-0.2); ABSOLUTE EOSINOPHILS # (AUTO) 0.4 10^3/uL (0.0-0.6); ABSOLUTE LYMPHOCYTES (AUTO) 3.1 10^3/uL (0.5-4.7); ABSOLUTE MONOCYTES (AUTO) 0.7 10^3/uL (0.1-1.4); ABSOLUTE NEUT (AUTO) 6.8 10^3/uL (1.7-8.2); BASOPHILS % (AUTO) 0.8 % (0-2); EOSINOPHILS % (AUTO) 3.5 % (0-6); HEMATOCRIT 48.6 % (37.9-51.0); LYMPHOCYTES % (AUTO) 27.8 % (13-45); MEAN CORPUSCULAR HEMOGLOBIN 33.2 pg (27.0-33.4); MEAN CORPUSCULAR HGB CONC 32.9 g/dL (32.0-36.0); MONOCYTES % (AUTO) 6.3 % (3-13); PLATELET COUNT 282 10^3/uL (150-450); RED BLOOD COUNT 4.81 10^6/uL (4.35-5.55); RED CELL DISTRIBUTION WIDTH 14.6 % (11.5-14.0); SEGMENTED NEUTROPHILS % (AUTO) 61.6 % (42-78); TOTAL CELLS COUNTED % (AUTO) 100 %; WHITE BLOOD COUNT 11.1 10^3/uL (4.0-10.5)
[2018-07-28 11:15] LABS: MEAN CORPUSCULAR VOLUME 101 fl (80-97)
[2018-07-28 11:37] LABS: ALANINE AMINOTRANSFERASE 15 U/L (21-72); ALBUMIN 5.4 g/dL (3.5-5.0); ALKALINE PHOSPHATASE 64 U/L (38-126); ASPARTATE AMINO TRANSFERASE 16 U/L (17-59); BILIRUBIN,DIRECT 0.8 mg/dL (0.0-0.4); BILIRUBIN,TOTAL 0.8 mg/dL (0.2-1.3); BLOOD UREA NITROGEN 36 mg/dL (7-20); CALCIUM 10.1 mg/dL (8.4-10.2); GLUCOSE 144 mg/dL (75-110); POTASSIUM 5.3 mmol/L (3.6-5.0); TOTAL PROTEIN 8.5 g/dL (6.3-8.2)
[2018-07-28 11:42] LABS: ALCOHOL < 10 mg/dL (NONE DETECTED)
[2018-07-28 11:44] LABS: CHLORIDE 90 mmol/L (98-107); SODIUM 136.1 mmol/L (137-145)
[2018-07-28 11:45] LABS: ANION GAP 37 (5-19)
[2018-07-28 11:47] LABS: CARBON DIOXIDE 9 mmol/L (22-30)
[2018-07-28] MEDS ORDERED: ACETAMINOPHEN 325 MG TABLET PO ONE (12:28)
[2018-07-28 13:40] LABS: VENOUS BLOOD BASE EXCESS -3.2 mmol/L; VENOUS BLOOD HCO3 23.4 mmol/L (20-32); VENOUS BLOOD PCO2 47.5 mmHg (35-63); VENOUS BLOOD PH 7.31 (7.30-7.42)
[2018-07-28 15:16] LABS: BLOOD UREA NITROGEN 41 mg/dL (7-20); CALCIUM 9.6 mg/dL (8.4-10.2); GLUCOSE 93 mg/dL (75-110)
[2018-07-28 15:53] LABS: CHLORIDE 93 mmol/L (98-107); SODIUM 133.7 mmol/L (137-145)
[2018-07-28 15:54] LABS: ANION GAP 21 (5-19); CARBON DIOXIDE 20 mmol/L (22-30)
[2018-07-28 16:18] VITALS: BP 131/95
--- NOTE | 2018-07-28 19:27 | EKG REPORT ---
SEVERITY:- ABNORMAL ECG - ATRIAL FIBRILLATION PROLONGED QT INTERVAL : Confirmed by: Jennfier Harvey 28-Jul-2018 19:26:02
== END 2018-07-28 16:25 | disposition home or self-care (01) ==
LOC: ER 10:21
DX: G40.909 Epilepsy, unspecified, not intractable, without status epilepticus (principal); R51 Headache; I10 Essential (primary) hypertension; J44.9 Chronic obstructive pulmonary disease, unspecified; R53.1 Weakness; R11.0 Nausea; I25.10 Atherosclerotic heart disease of native coronary artery without angina pectoris; Z79.899 Other long term (current) drug therapy
CPT/HCPCS: 93005; 99284; 96375; 96365; 36415; 80307; 83605; 83735; 85025; 80048; 80053; 82803; 93010; A9270; J2405; J1953

== ENCOUNTER 2018-08-01 15:48 | Emergency (ER) | payer MEDICARE, MEDICAID ==
--- NOTE | 2018-08-01 16:16 | ER Document Report ---
ED General - General Chief Complaint: Altered Mental Status Stated Complaint: ABNORMAL TEST RESULTS Time Seen by Provider: 08/01/18 16:16 Notes: This is a 58-year-old man to the emergency department for evaluation of altered mental status. Patient was seen here approximately 4 days ago. Possibly had a seizure. Has been more altered since that time. Followed up with his primary care doctor. CT scan of the head was ordered. Subdural hematoma was found. Patient sent to the ER. Apparently according to family members he is more confused. TRAVEL OUTSIDE OF THE [place] IN LAST 30 DAYS: No - HPI Onset: Yesterday Onset/Duration: Gradual, Worse Severity: Mild Pain Level: 0 - Related Data Allergies/Adverse Reactions: cyclosporine Allergy (Verified 08/01/18 15:52) Penicillins Allergy (Verified 08/01/18 15:52) Past Medical History - General Information source: Patient - Social History Smoking Status: Never Smoker Frequency of alcohol use: None Drug Abuse: None Lives with: Family Family History: Reviewed & Not Pertinent - Past Medical History Cardiac Medical History: Reports: Hx Coronary Artery Disease, Hx Hypertension - MEDICATED, Hx Peripheral Vascular Disease Denies: Hx Heart Attack - ? Pulmonary Medical History: Reports: Hx COPD - ALBUTEROL Denies: Hx Asthma - ?, Hx Bronchitis - ?, Hx Pneumonia Neurological Medical History: Reports: Hx Cerebrovascular Accident - X3,LAST OVER 1 YR,BRAIN ANUERYSM 03/2016, Hx Seizures - March,X5 NEW ISSUE Endocrine Medical History: Denies: Hx Diabetes Mellitus Type 1 Renal/ Medical History: Reports: Hx End Stage Renal Disease. Denies: Hx Peritoneal Dialysis Musculoskeletal Medical History: Denies Hx Arthritis Psychiatric Medical History: Reports: Hx Depression Past Surgical History: Reports: Hx Orthopedic Surgery - orthoscopic surg lt knee x2, Hx Vascular Surgery - AV fistula left forearm, Other - carotid artery stents bilat - Immunizations Hx Diphtheria, Pertussis, Tetanus Vaccination: Yes Hx Pneumococcal Vaccination: 07/23/16 Review of Systems - Review of Systems Notes: Constitutional: denies: Chills, Diaphoresis, Fever, Malaise, Weakness EENT: denies: Eye discharge, Blurred vision, Tearing, Double vision, Nose congestion, Nose discharge, Throat swelling, Mouth pain Cardiovascular: denies: Palpitations, Heart racing, Orthopnea, Dyspnea, Chest pain Respiratory: denies: Cough, Hurts to breathe, Wheezing, Shortness of breath Gastrointestinal: denies: Abdominal pain, Diarrhea, Nausea, Vomiting, Black stools, bright red blood in stool Genitourinary: denies: Burning, Dysuria, Discharge, Frequency, Flank pain, Hematuria Musculoskeletal: denies: Joint pain, Joint swelling, Muscle pain, Muscle stiffness, back pain Hematologic/Lymphatic: denies: Anemia, Easy bleeding, Easy bruising, Blood clots Neurological/Psychological: denies: Dementia, Depression, Loss of consciousness. Mental status, seizures Skin: No lesions, no masses, no skin breakdown, no abscesses Physical Exam - Vital signs Vitals: Temp Pulse Resp BP Pulse Ox 97.9 F 77 18 131/75 H 99 08/01/18 15:52 08/01/18 15:52 08/01/18 15:52 08/01/18 15:52 08/01/18 15:52 Interpretation: Normal - General General appearance: Appears well, Alert - HEENT Head: Normocephalic, Atraumatic Eyes: Normal Pupils: PERRL - Respiratory Respiratory status: No respiratory distress Chest status: Nontender Breath sounds: Normal Chest palpation: Normal - Cardiovascular Rhythm: Regular Heart sounds: Normal auscultation Murmur: No - Abdominal Inspection: Normal Distension: No distension Bowel sounds: Normal Tenderness: Nontender Organomegaly: No organomegaly - Back Back: Normal, Nontender - Extremities General upper extremity: Normal inspection, Nontender, Normal color, Normal ROM , Normal temperature General lower extremity: Normal inspection, Nontender, Normal color, Normal ROM , Normal temperature, Normal weight bearing. No: Zander's sign - Neurological Neuro grossly intact: Yes Cognition: Normal Orientation: AAOx4 [place] Coma Scale Eye Opening: Spontaneous [place] Coma Scale Verbal: Oriented [place] Coma Scale Motor: Obeys Commands [place] Coma Scale Total: 15 Speech: Normal Cranial nerves: Normal Cerebellar coordination: Normal Motor strength normal: LUE, RUE, LLE, RLE Additional motor exam normals: Equal coil winder. No: Pronator drift, Weakness, Hemiplegia Sensory: Normal - Psychological Associated symptoms: Normal affect, Normal mood - Skin Skin Temperature: Warm Skin Moisture: Dry Skin Color: Normal Course - Re-evaluation Re-evalutation: 08/01/18 18:[address] scan reveals a acute subdural hematoma. With his mental status changes I am very concerned. Consult with a neurosurgeon at [facility] in [facility]. Dr. Santillan has accepted the patient. Will transfer shortly. - Vital Signs Vital signs: Temp Pulse Resp BP Pulse Ox 97.9 F 77 18 131/75 H 99 08/01/18 15:52 08/01/18 15:52 08/01/18 15:52 08/01/18 15:52 08/01/18 15:52 Critical Care Note - Critical Care Note Total time excluding time spent on procedures (mins): 45 Comments: Consultation with specialist, coordination of care, transfer of care Discharge - Discharge Clinical Impression: Subdural hematoma, acute Condition: Good Disposition: [facility] Referrals: STEVAN ENG, IMPREGNATION OPERATOR [Primary Care Provider] - Follow up as needed
[2018-08-01] MEDS ORDERED: LORAZEPAM INJ 2 MG/1 ML VIAL IV ONE (21:36)
[2018-08-01 21:55] VITALS: BP 153/83
[2018-08-01] MEDS ORDERED: LEVETIRACETAM 500 MG/NACL-ISO 500 MG/100 ML RTUPB IV SCH (22:00)
== END 2018-08-01 21:30 | disposition short-term general hospital (02) ==
LOC: ER 15:48
DX: I62.01 Nontraumatic acute subdural hemorrhage (principal); R41.82 Altered mental status, unspecified; I12.0 Hypertensive chronic kidney disease with stage 5 chronic kidney disease or end stage renal disease; N18.6 End stage renal disease; Z88.0 Allergy status to penicillin
CPT/HCPCS: 99291; 96374; 96375; J2060; J1953

== ENCOUNTER → 2018-10-12 | Outpatient (CLI) | payer MEDICARE, MEDICAID ==
--- NOTE | 2018-10-12 14:35 | RADIOLOGY REPORT (SQ) ---
EXAM DESCRIPTION: CT HEAD WITHOUT COMPLETED DATE/TIME: 10/12/2018 2:16 pm REASON FOR STUDY: G44.1 VASCULAR HEADACHE, NOT ELSEWHERE CLASSIFIED G44.1 VASCULAR HEADACHE, NOT EL SEWHERE CLASSIFIED COMPARISON: CT brain 06/18/2017, 04/21/2017 TECHNIQUE: Axial images acquired through the brain without intravenous contrast. Images reviewed wi th bone, brain and subdural windows. Additional sagittal and coronal reconstructions were generated. Images stored on PACS. All CT scanners at this facility use dose modulation, iterative reconstruction, and/or weight based d osing when appropriate to reduce radiation dose to as low as reasonably achievable (ALARA). [facility]: Dose Right [facility]: CareDose [facility]: Dose Right [facility]: Teradose 4D [facility]: Smart [employer] RADIATION DOSE: CT Rad equipment meets quality standard of care and radiation dose reduction techniq ues were employed. CTDIvol: 48.7 mGy. DLP: 1077 mGy-cm. mGy. LIMITATIONS: None. FINDINGS: Old right frontal craniotomy. Deep to the craniotomy flap, a 4 x 5 cm area of encephaloma lacia in the right frontal lobe is present. This is stable compared to both prior studies. There is spotty bifrontal and biparietal chronic small vessel ischemic change, mild in severity. Thi s is similar compared to previous CT exams. No CT evidence of acute large territory ischemic change, acute intracranial hemorrhage, mass effect, or midline shift. Orbits, paranasal sinuses, mastoid air cells unremarkable. Sagittal and coronal reconstructions yield no additional findings. No metallic aneurysm clip or coil is identified intracranially. IMPRESSION: Old right frontal craniotomy with right frontal encephalomalacia. Chronic white matter disease in the hemispheric white matter. No acute findings EVIDENCE OF ACUTE STROKE: NO. COMMENT: Quality ID # [id number]: Final reports with documentation of one or more dose reduction techniques (e.g., Automated exposure control, adjustment of the mA and/or kV according to patient size, use of iterative reconstruction technique) TECHNICAL DOCUMENTATION: JOB ID: [id number] [employer]- All Rights Reserved Reading location - IP/workstation name: [email or web address]
== END ==
LOC: RAD 15:28
PROVIDERS: ATTEND Nurse Practitioner Pediatrics
DX: G44.1 Vascular headache, not elsewhere classified (principal); G93.89 Other specified disorders of brain
CPT/HCPCS: 70450

== ENCOUNTER 2018-11-03 19:34 | Emergency (ER) | payer MEDICARE, MEDICAID ==
[2018-11-03 20:57] LABS: ABSOLUTE LYMPHOCYTES (AUTO) 0.7 10^3/uL (0.5-4.7); ABSOLUTE MONOCYTES (AUTO) 0.7 10^3/uL (0.1-1.4); ABSOLUTE NEUT (AUTO) 7.9 10^3/uL (1.7-8.2); BASOPHILS % (AUTO) 0.2 % (0-2); HEMATOCRIT 33.2 % (37.9-51.0); HEMOGLOBIN 11.5 g/dL (13.5-17.0); LYMPHOCYTES % (AUTO) 7.1 % (13-45); MEAN CORPUSCULAR HEMOGLOBIN 32.9 pg (27.0-33.4); MEAN CORPUSCULAR HGB CONC 34.7 g/dL (32.0-36.0); MEAN CORPUSCULAR VOLUME 95 fl (80-97); MONOCYTES % (AUTO) 7.9 % (3-13); PLATELET COUNT 230 10^3/uL (150-450); RED CELL DISTRIBUTION WIDTH 14.2 % (11.5-14.0); SEGMENTED NEUTROPHILS % (AUTO) 84.8 % (42-78); TOTAL CELLS COUNTED % (AUTO) 100 %; WHITE BLOOD COUNT 9.3 10^3/uL (4.0-10.5)
[2018-11-03] MEDS ORDERED: LEVETIRACETAM 1500 MG/NACL-ISO 1,500 MG/100 ML RTUPB IV ONE (21:00)
[2018-11-03] MEDS ORDERED: NICARDIPINE HCL RTU, ISO-OS 20 MG/200 ML RTUINJ IV PRN (21:01)
--- NOTE | 2018-11-03 21:01 | ER Document Report ---
ED General - General Chief Complaint: Altered Mental Status Stated Complaint: CONFUSION Time Seen by Provider: 11/03/18 19:59 Cannot obtain history due to: Altered mental status Notes: Patient is a 58-year-old male with a past history of end-stage kidney disease with dialysis dependence, just received dialysis today, hypertension, hyperlipidemia, history of seizures, noncompliant with seizure medication who presents by EMS with his daughter who reports that the patient has been increasingly confused since getting back from dialysis today. She reports that last evening the patient vomited, went to bed early. Apparently got up went to dialysis today when he came home seemed very confused and somewhat lethargic to the family. The patient himself denies any complaints, is altered and does not provide meaningful history. TRAVEL OUTSIDE OF THE [place] IN LAST 30 DAYS: No - Related Data Allergies/Adverse Reactions: cyclosporine Allergy (Verified 08/01/18 15:52) Penicillins Allergy (Verified 08/01/18 15:52) Past Medical History - General Information source: Patient, Relative - Social History Smoking Status: Former Smoker Frequency of alcohol use: None Drug Abuse: None Lives with: Family Family History: Reviewed & Not Pertinent - Past Medical History Cardiac Medical History: Reports: Hx Coronary Artery Disease, Hx Hypertension - MEDICATED, Hx Peripheral Vascular Disease Denies: Hx Heart Attack - ? Pulmonary Medical History: Reports: Hx COPD - ALBUTEROL Denies: Hx Asthma - ?, Hx Bronchitis - ?, Hx Pneumonia Neurological Medical History: Reports: Hx Cerebrovascular Accident - X3,LAST OVER 1 YR,BRAIN ANUERYSM 03/2016, Hx Seizures - March,X5 NEW ISSUE Endocrine Medical History: Denies: Hx Diabetes Mellitus Type 1 Renal/ Medical History: Reports: Hx End Stage Renal Disease. Denies: Hx Peritoneal Dialysis Musculoskeletal Medical History: Denies Hx Arthritis Psychiatric Medical History: Reports: Hx Depression Past Surgical History: Reports: Hx Orthopedic Surgery - orthoscopic surg lt knee x2, Hx Vascular Surgery - AV fistula left forearm, Other - carotid artery stents bilat - Immunizations Hx Diphtheria, Pertussis, Tetanus Vaccination: Yes Hx Pneumococcal Vaccination: 07/23/16 Review of Systems - Review of Systems Notes: Constitutional: Negative for fever. HENT: Negative for sore throat. Eyes: Negative for visual changes. Cardiovascular: Negative for chest pain. Respiratory: Negative for shortness of breath. Gastrointestinal: Positive for vomiting Genitourinary: Negative for dysuria. Musculoskeletal: Negative for back pain. Skin: Negative for rash. Neurological: Positive for headache and confusion 10 point ROS negative except as marked above and in HPI. Physical Exam - Vital signs Vitals: Resp 15 11/03/18 19:41 Interpretation: Hypertensive, Tachycardic Notes: PHYSICAL EXAMINATION: GENERAL: Appears frail, much older than stated age. HEAD: Atraumatic, normocephalic. EYES: Pupils equal round and reactive to light, extraocular movements intact, sclera anicteric, conjunctiva are normal. ENT: nares patent, oropharynx clear without exudates. Dry mucous membranes. NECK: Normal range of motion, supple without lymphadenopathy LUNGS: Breath sounds clear to auscultation bilaterally and equal. No wheezes rales or rhonchi. HEART: Regular tachycardia without murmurs ABDOMEN: Soft, nontender, normoactive bowel sounds. No guarding, no rebound. No masses appreciated. EXTREMITIES: Normal range of motion, no pitting or edema. No cyanosis. NEUROLOGICAL: Face symmetric. Tongue protrudes midline. Extraocular motions intact. Pupils are 2 mm and equally reactive. Delayed speech. 5 out of 5 strength in both the distal and proximal upper and lower extremities bilaterally. Sensation is grossly intact throughout. Standing when I walk into the room. PSYCH: Alert but slow to respond to questions. Oriented to person, month, year but not state, city, current events SKIN: Warm, Dry, normal turgor, no rashes or lesions noted. Course - Re-evaluation Re-evalutation: 11/03/18 20:40 Patient presents with confusion, report of subjective fever at home, vomiting, cough, symptoms of been ongoing for the past 2 days. Patient does not provide meaningful history in both of his daughters at the bedside are likewise poor historians. They contacted EMS tonight because the patient was increasingly lethargic, seemed confused. On exam the patient denies any symptoms. He has signs and symptoms consistent with delirium as he is picking at the bed sheets, restless, try to get out of the bed. His disorientation is also an unusual pattern. He is oriented to the month and year but does not know the president, city, state or any recent events. He is able to identify his daughters by name accurately. No focal neurologic deficits on exam. Family has not witnessed any recurrent seizures although the patient has a known history of epilepsy requiring intubation and propofol infusion. 11/03/18 21:01 CT the head has been completed large bleed in the left frontal temporal region extending into the ventricles with midline shift. The patient was initially quite hypertensive into the 190s systolic. Patient will be placed on a nicardip ine infusion, loaded with levetiracetam as he is noncompliant. Patient is critically ill, will reassess at regular intervals. I will contact [facility] and request transfer. 11/03/18 21:21 Patient remains confused, no focal neurological deficits however. Labs are pending. Patient has very difficult IV access and we are working to establish at this time. 11/03/18 21:30 We have been able to establish 2 points of IV access. Nicardipine infusion has been initiated. We are targeting a systolic blood pressure less than 140 above 120. Because this case with the nurse practitioner who is under Dr. Ackerman, has accepted the patient in transfer. I have asked a TXA infusion after bolus be initiated. The patient remains neurologically unchanged from previous assessment. Will continue to reassess at regular intervals. 11/03/18 23:02 Patient blood pressure has significantly improved currently 161/58 on 10mg of nicardipine infusion. Patient's medical status remains unchanged., Continues to follow commands in all 4 extremities. Unfortunately air transport is not available, ground transport truck is in bound. 11/04/18 2330 Patient is appropriate and stable for transport at this point. - Vital Signs Vital signs: Temp Pulse Resp BP Pulse Ox 99.9 F 120 H 20 153/70 H 96 11/03/18 23:00 11/03/18 21:06 11/03/18 23:21 11/03/18 23:21 11/03/18 23:20 - Laboratory Result Diagrams: 11/03/18 19:57 11/03/18 19:57 Laboratory results interpreted by me: 11/03/18 11/03/18 11/03/18 19:57 19:57 19:57 RBC 3.50 L Hgb 11.5 L Hct 33.2 L RDW 14.2 H Seg Neutrophils % 84.8 H Lymphocytes % 7.1 L PT VBG pH Creatinine 5.81 H Est GFR ( Amer) 12 L Est GFR (Non-Af Amer) 10 L Glucose 129 H Lactic Acid 3.3 H Direct Bilirubin 0.6 H ALT 14 L Albumin 5.1 H 11/03/18 11/03/18 19:57 22:00 RBC Hgb Hct RDW Seg Neutrophils % Lymphocytes % PT 16.5 H VBG pH 7.45 H Creatinine Est GFR ( Amer) Est GFR (Non-Af Amer) Glucose Lactic Acid Direct Bilirubin ALT Albumin - Diagnostic Test Radiology reviewed: Image reviewed, Reports reviewed Radiology results interpreted by me: 11/03/18 21:31 Extensive left frontal intraparenchymal hemorrhage with intraventricular extension, left rightward shift is present. Critical Care Note - Critical Care Note Total time excluding time spent on procedures (mins): 40 Comments: Critical care time spent obtaining history from patient or surrogate, discussions with consultants, development of treatment plan with patient or surrogate, evaluation of patient's response to treatment, examination of patie nt, ordering and performing treatments and interventions, ordering and review of laboratory studies, re-evaluation of patient's condition, ordering and review of radiographic studies and review of old charts Discharge - Discharge Clinical Impression: Intraparenchymal hemorrhage of brain, Hypertensive emergency Altered mental status Qualifiers: Altered mental status type: disorientation Qualified Code(s): R41.0 - Disorientation, unspecified Condition: Critical Disposition: [facility] Referrals: KAVYA LENZ NP [Primary Care Provider] - Follow up as needed
[2018-11-03] MEDS ORDERED: LEVETIRACETAM IV ONE (21:06)
[2018-11-03] MEDS ORDERED: NACL ISO IV ONE (21:06)
--- NOTE | 2018-11-03 21:13 | RADIOLOGY REPORT (SQ) ---
EXAM DESCRIPTION: CT HEAD WITHOUT IV CONTRAST COMPLETED DATE/TME: 11/03/2018 20:51 CLINICAL HISTORY: 58 years, Male, ams COMPARISON: 10/12/2018 CT brain TECHNIQUE: 205 Images stored on PACS. All CT scanners at this facility use dose modulation, iterative reconstruction, and/or weight based dosing when appropriate to reduce radiation dose to as low as reasonably achievable (ALARA). [facility]: Dose Right [facility]: CareDose [facility]: Dose Right [facility]: Teradose 4D [facility]: [employer] LIMITATIONS: None. FINDINGS: The globes are intact. The paranasal sinuses and mastoid air cells are unremarkable. No displaced or depressed skull fracture. Large area of intraparenchymal hemorrhage in the left frontal region, as well as extensive intraventricular hemorrhage in the bilateral lateral ventricles extending into the third ventricle. Mass effect on the frontal horn of the left lateral ventricle. Slight left to right midline shift of the falx, by approximately 1.5 cm. There is an area of old infarct in the right frontal region. There is also a small amount of hemorrhage within the fourth ventricle. Mild diffuse atrophy. IMPRESSION: Extensive areas of intraventricular and intraparenchymal hemorrhage, as above with rightward midline shift by 1.5 cm. Mass effect on the frontal horn of the left lateral ventricle as well. Old infarct in the right frontal region. TECHNICAL DOCUMENTATION: Quality ID # [id number]: Final reports with documentation of one or more dose reduction techniques (e.g., Automated exposure control, adjustment of the mA and/or kV according to patient size, use of iterative reconstruction technique) copyright 2011 [employer]- All Rights Reserved
--- NOTE | 2018-11-03 21:20 | RADIOLOGY REPORT (SQ) ---
EXAM DESCRIPTION: XR CHEST 1 VIEW COMPLETED DATE/TME: 11/03/2018 20:50 CLINICAL HISTORY: 58 years, Male, fever, cough COMPARISON: 04/21/2017 chest NUMBER OF VIEWS: 1 TECHNIQUE: Portable chest LIMITATIONS: None. FINDINGS: Cardiomegaly. Atheromatous change thoracic aorta. Mild elevation of the right hemidiaphragm. Lungs are clear. No pneumothorax IMPRESSION: Cardiomegaly. Lungs are clear copyright 2011 [employer]- All Rights Reserved
[2018-11-03 21:22] LABS: ALANINE AMINOTRANSFERASE 14 U/L (21-72); ALBUMIN 5.1 g/dL (3.5-5.0); ALKALINE PHOSPHATASE 64 U/L (38-126); ANION GAP 14 (5-19); ASPARTATE AMINO TRANSFERASE 26 U/L (17-59); BILIRUBIN,DIRECT 0.6 mg/dL (0.0-0.4); BLOOD UREA NITROGEN 15 mg/dL (7-20); CARBON DIOXIDE 25 mmol/L (22-30); CHLORIDE 99 mmol/L (98-107); GLUCOSE 129 mg/dL (75-110); LIPASE 80.3 U/L (23-300); SODIUM 138.3 mmol/L (137-145); TOTAL PROTEIN 8.2 g/dL (6.3-8.2)
[2018-11-03 21:29] LABS: INTERNATIONAL RATION (INR) 1.26; PROTHROMBIN TIME 16.5 SEC (11.4-15.4)
[2018-11-03] MEDS ORDERED: TRANEXAMIC ACID INJ/PF 1,000 MG/10 ML SDV IV ONE ×2 (21:29)
[2018-11-03 21:30] LABS: PARTIAL THROMBOPLASTIN TIME 26.4 SEC (23.5-35.8)
[2018-11-03 22:12] LABS: VENOUS BLOOD BASE EXCESS 1.1 mmol/L; VENOUS BLOOD PH 7.45 (7.30-7.42)
[2018-11-04 00:23] VITALS: BP 153/70
--- NOTE | 2018-11-04 16:46 | EKG REPORT ---
SEVERITY:- BORDERLINE ECG - SINUS TACHYCARDIA BORDERLINE PROLONGED QT INTERVAL : Confirmed by: Dat Mason MD 04-Nov-2018 16:45:20
== END 2018-11-03 23:45 | disposition short-term general hospital (02) ==
LOC: ER 19:34
DX: I61.9 Nontraumatic intracerebral hemorrhage, unspecified (principal); I16.0 Hypertensive urgency; R41.0 Disorientation, unspecified; R50.9 Fever, unspecified; I12.0 Hypertensive chronic kidney disease with stage 5 chronic kidney disease or end stage renal disease; N18.6 End stage renal disease; Z99.2 Dependence on renal dialysis; Z87.891 Personal history of nicotine dependence; I25.10 Atherosclerotic heart disease of native coronary artery without angina pectoris; J44.9 Chronic obstructive pulmonary disease, unspecified; Z79.899 Other long term (current) drug therapy
CPT/HCPCS: 93005; 99291; 96375; 96365; 96367; 36415; 87040; 83690; 85025; 85610; 85730; 80053; 82803; 83605; 71045; 70450; 93010; J3490 ×2; J1953